=== PATIENT | female | born 1940 | race Caucasian/White ===

== ENCOUNTER 2017-04-17 12:53 | Inpatient (IN) ==
--- NOTE | 2017-04-17 13:01 | Emergency Department Note ---
Disposition Clinical Impression: Closed sacral fracture Qualifiers: Encounter type: initial encounter Zone of sacrum fracture: unspecified portion of sacrum Qualified Code(s): S32.10XA - Unspecified fracture of sacrum, initial encounter for closed fracture Disposition: Admitted As Inpatient Condition: Fair Referrals: Edna Whelan CNP [Primary Care Provider] - Forms: ED Satisfaction Letter Back Pain HPI - General Chief Complaint: ED Back Pain/Injury Stated Complaint: fall/lower back pain Time Seen by Provider: 04/17/17 12:58 Source: patient, family, EMS Mode of arrival: EMS Limitations: physical limitation (Hard of hearing) Nursing Notes Reviewed: Yes Vital Signs Reviewed: Yes - History of Present Illness HPI Narrative: Patient was walking out the front door shortly before presentation. Family states she reached for the doorknob and it spun on her and she lost her balance and fell backwards into a sitting position. She indicated that she felt a pop and pain in her mid low back and they called the squad to have her brought in for evaluation. She poorly has had a number fractures in the past and they are worried that she might of broken something. She is able to indicate that her pain is only in the mid low back. She denies hitting her head or having pain in the neck or upper back. She has not had preceding physical complaint. She is not having chest pain, palpitations, cough or congestion. She has abdominal pain, nausea, vomiting or diarrhea. She has had a recent UTI which she was started on Cipro and then switched to Augmentin. She has not been having fevers , chills or other weakness or dizziness. Pt Subjective Complaint: back pain Onset (ago): Just RELIABILITY SPECIALIST Duration: constant Similar Symptoms Previously: No Location: lumbar spine Pain Severity: moderate Quality: dull, aching Radiation: none Improves with: immobilization Worsens with: movement Context: fall Associated symptoms: Denies: numbness, weakness, incontinence of bowel/bladder, fever, chills, abdominal pain, dysuria, hematuria - Related Data Home Medications Medication Instructions Recorded Confirmed Albuterol Sulfate [Ventolin Hfa] 18 gm IH Q4HR PRN 12/06/16 01/14/17 Amiodarone [Cordarone] 200 mg PO DAILY 12/06/16 01/14/17 Aspirin [Lo-Dose Aspirin EC] 81 mg PO QAM 12/06/16 01/14/17 Beclomethasone Diprop 80mcg [Qvar 4 puff IH BID 12/06/16 01/14/17 80 mcg] Gabapentin [Neurontin] 400 mg PO QAM 12/06/16 01/14/17 GlipiZIDE [Glucotrol Xl] 2.5 mg PO BID 12/06/16 01/14/17 Hydralazine HCl 100 mg PO TID 12/06/16 01/14/17 Levothyroxine [Synthroid] 88 mcg PO 0612/06/16 01/14/17 Lisinopril 40 mg PO BID 12/06/16 01/14/17 Methenamine Hippurate [Hiprex] 1 gm PO BID 12/06/16 01/14/17 Jacob-3/Dha/Epa/Fish Oil [Jacob 3 1 each PO QAM 12/06/16 01/14/17 500 Softgel] Simvastatin [Zocor] 10 mg PO QAM 12/06/16 01/14/17 amLODIPine [Norvasc] 10 mg PO QAM 12/06/16 01/14/17 metFORMIN [Glucophage] 500 mg PO BIDWM 12/06/16 01/14/17 Sertraline [Zoloft] 25 mg PO DAILY 01/14/17 01/14/17 Previous Rx's Medication Instructions Recorded Albuterol Sulfate [Albuterol 2 puff IH Q4HR PRN #1 hfa.aer.ad 12/14/16 Inhaler] Meloxicam 7.5 mg PO DAILY #7 tablet 01/14/17 Ciprofloxacin [Cipro] 500 mg PO BID #10 tablet 04/03/17 Allergies Allergy/AdvReac Type Severity Reaction Status Date / Time No Known Allergies Allergy Verified 12/06/16 17:11 All systems ED: reviewed and negative except as stated. Past Medical History - Past Medical History Attestation: Yes The following information was validated with the patient. Source: patient, old records reviewed, obtained from family, nursing notes reviewed Medical history: Reports: arthritis, atrial fibrillation, diabetes, hypertension , thyroid disease Surgical history: Reports: hysterectomy, orthopedic, other (Left ankle, elbow repair, bilateral wrist surgeries), other (Tonsillectomy) Psychiatric history: Reports: anxiety - Social History Smoking Status: Never smoker Smokeless Tobacco Status: No Alcohol use: Reports: none Drug use: Reports: none Physical Exam - General Limitations: physical limitation (Hard of hearing) General appearance: alert, in no apparent distress - Head Head exam: atraumatic, normocephalic, normal inspection, other (No point tenderness to palpation.) - Eye Eye exam: Present: normal appearance, PERRL, EOMI - ENT ENT exam: normal exam, normal oropharynx, mucous membranes moist - Neck Neck exam: Present: normal inspection, full ROM, trachea midline - Chest Chest inspection: Present: normal inspection, symmetric chest wall rise - Respiratory Respiratory exam: Present: normal lung sounds bilaterally. Absent: respiratory distress, wheezes, prolonged expiratory phase - Cardiovascular Cardiovascular exam: Present: regular rate, normal rhythm, normal heart sounds. Absent: tachycardia - Abdominal Exam Abdominal exam: Present: soft, Non-Tender, normal bowel sounds. Absent: tenderness, distention, guarding, rebound, rigidity - Extremities Exam Extremities exam: Present: normal inspection, full ROM, normal capillary refill. Absent: tenderness, pedal edema, calf tenderness - Expanded Lower Extremity Exam Neurovascular/Tendon exam: Present: normal capillary refill. Absent: motor deficit, sensory deficit, tendon deficit Gait: not tested/not observed - Back Exam Back exam: Present: normal inspection, tenderness (Mid-level lumbar spine.), vertebral tenderness. Absent: full ROM, CVA tenderness (R), CVA tenderness (L) , muscle spasm, paraspinal tenderness, straight leg raise (R), straight leg raise (L) - Neurological Exam Neurological exam: Present: alert, oriented X3. Absent: motor sensory deficit - Psychiatric Psychiatric exam: Present: normal affect, normal mood - Skin Skin exam: Present: warm, dry, intact, normal color Course Course Narrative: 1400: There has been discussed with the patient, family and Dr. Cyr. Dr. Cyr is agreeable with a patient at this facility to coordinate further PT and OT evaluation. He would like a consultation with orthopedics to ensure that they would not do anything more aggressive or specific upper at [facility] main [place]. I have paged to Dr. Blackburn to discuss the care of this patient. 1415: Care of the subtle, nondisplaced bilateral sacral fractures is discussed with Dr. Blackburn architectural sales consultant for orthopedics. He confirms that there is nothing specific to do, that she should use a walker and weightbearing as tolerated, should receive pain management and a bowel regimen to prevent constipation. He will be available for phone consultation with regard to her course is needed. He does not believe she needs transferred at this time. Vital Signs Temperature 98.2 F 04/17/17 12:55 Pulse Rate 46 04/17/17 12:55 Respiratory Rate 18 04/17/17 12:55 Blood Pressure 155/101 04/17/17 12:55 O2 Sat by Pulse Oximetry 92 04/17/17 12:55 Temperature 98.2 F 04/17/17 12:59 Pulse Rate 61 04/17/17 14:35 Respiratory Rate 18 04/17/17 14:35 Blood Pressure 148/75 04/17/17 14:35 O2 Sat by Pulse Oximetry 95 04/17/17 14:35 Oxygen Delivery Oxygen Delivery Nasal Cannula Back Pain/Injury - Differential Diagnosis Differential Diagnosis: Likely: lumbar radiculopathy, sciatica, strain of lumbar region (Impression fracture) - Lab Data Lab results reviewed: Yes I reviewed the patient's lab results. Result diagrams: 04/17/17 14:10 04/17/17 14:10 Lab Results 04/17/17 04/17/17 Range/Units 14:10 14:10 WBC 10.2 (4.3-11.1) K/mcL RBC 4.33 (3.82-4.97) M/mcL Hgb 11.5 (11.5-15.4) g/dL Hct 37.2 (35.3-44.9) % MCV 85.9 (83.0-100.0) fL MCH 26.6 L (28.0-33.3) pg MCHC 30.9 L (31.6-35.5) g/dL RDW 17.1 H (11.5-14.5) % Plt Count 232 (140-400) K/mcL MPV 10.8 (9.4-12.4) fL Immature Gran % 0.7 (0-4) % Seg Neutrophils % 79.6 % Lymphocytes % 11.9 % Monocytes % 5.8 % Eosinophils % 1.6 % Basophils % 0.4 % Neutrophils # 8.1 (1.6-8.9) K/mcL Lymphocytes # 1.2 (0.6-4.6) K/mcL Monocytes # 0.6 (0.0-1.3) K/mcL Eosinophils # 0.2 (0.0-0.6) K/mcL Basophils # 0.0 (0.0-0.2) K/mcL Sodium 140 (136-145) mEq/L Potassium 4.4 (3.5-4.5) mEq/L Chloride 108 (98-109) mEq/L Carbon Dioxide 22 (19-29) mEq/L BUN 14 (7-20) mg/dL Creatinine 0.82 (0.57-1.11) mg/dL Est GFR ( Amer) > 60 (> 60) Est GFR (Non-Af Amer) > 60 (> 60) BUN/Creatinine Ratio 17 (6-26) Glucose 95 (70-99) mg/dL Calculated Osmolality 290 (280-300) Calcium 8.6 (8.6-10.8) mg/dL - Radiology Data Radiology results reviewed: Yes I reviewed the patient's radiology results. CT is performed of the abdomen and pelvis without IV or oral contrast. This does not demonstrate acute abnormality in the lungs nor intra-abdominal structures. There is a retroperitoneal swelling or hemorrhage. The aorta appears normal. Lumbar spine is without evidence for compression and disc spaces are intact. She does have degenerative changes. Pelvis, pubic rami and hips appear normal. There appears to be some vacuolization of the sacroiliac joints but do not see evidence for acute fracture. No acute abnormality is seen , on my interpretation. Impressions Abdomen/Pelvis CT 04/17/17 13:01 IMPRESSION: Bilateral sacral fractures, presumably recent or acute. Intra-abdominal postsurgical findings D/ / Felix Arnett MD / Felix Arnett MD Interpreting Provider: Felix Arnett MD
[2017-04-17] MEDS ORDERED: 0.9 % Sodium Chloride 1,000 ML IVC SCH (14:00)
[2017-04-17] MEDS ORDERED: Ketorolac 30 MG/ML VIAL IVP ONE (14:01)
[2017-04-17] MEDS ORDERED: Ondansetron 4 MG/2 ML VIAL IVP ONE (14:01)
[2017-04-17] MEDS ORDERED: *HR* HYDROmorphone (PF) 1 MG/ML SYRINGE IVP ONE (14:01)
[2017-04-17 14:18] LABS: Basophils % 0.4 %; Eosinophils # 0.2 K/mcL (0.0-0.6); Eosinophils % 1.6 %; Hematocrit 37.2 % (35.3-44.9); Hemoglobin 11.5 g/dL (11.5-15.4); Immature Granulocytes % 0.7 % (0-4); Lymphocytes # 1.2 K/mcL (0.6-4.6); Lymphocytes % 11.9 %; Mean Corpuscular HGB Conc 30.9 g/dL (31.6-35.5); Mean Corpuscular Hemoglobin 26.6 pg (28.0-33.3); Mean Corpuscular Volume 85.9 fL (83.0-100.0); Mean Platelet Volume 10.8 fL (9.4-12.4); Monocytes # 0.6 K/mcL (0.0-1.3); Monocytes % 5.8 %; Neutrophils # 8.1 K/mcL (1.6-8.9); Platelet Count 232 K/mcL (140-400); Red Blood Count 4.33 M/mcL (3.82-4.97); Red Cell Distribution Width 17.1 % (11.5-14.5); Segmented Neutrophils % 79.6 %
[2017-04-17 14:33] LABS: BUN/Creatinine Ratio 17 (6-26); Blood Urea Nitrogen 14 mg/dL (7-20); Calcium 8.6 mg/dL (8.6-10.8); Carbon Dioxide 22 mEq/L (19-29); Chloride 108 mEq/L (98-109); Glucose 95 mg/dL (70-99); Osmolality,Calculated 290 (280-300); Potassium 4.4 mEq/L (3.5-4.5); Sodium 140 mEq/L (136-145); eGFR For African Americans > 60 (> 60); eGFR For Non-African Americans > 60 (> 60)
[2017-04-17] MEDS ORDERED: *HR* Dextrose 50 % in Water (Syg) 50 ML SYRINGE IVP PRN (15:02)
[2017-04-17] MEDS ORDERED: D5% in Water 1,000 ML IVC PRN (15:02)
[2017-04-17] MEDS ORDERED: Naloxone 0.4 MG/ML INJ IVP PRN (15:02)
[2017-04-17] MEDS ORDERED: *HR* HYDROcodone/Acet 5/325 mg TABLET PO PRN (15:02)
[2017-04-17] MEDS ORDERED: Dextrose Gel 15 GM PO PRN ×2 (15:02)
[2017-04-17] MEDS ORDERED: Ondansetron 4 MG/2 ML VIAL IVP PRN (15:02)
[2017-04-17] MEDS ORDERED: MOM Conc 10 ML UD.LIQ PO PRN (15:02)
[2017-04-17] MEDS: 0.9 % Sodium Chloride 1,000 ML IVC SCH (16:40)
[2017-04-17] MEDS: Insulin LISPRO 300 UNITS/3 ML VIAL SQ SCH (16:41)
--- NOTE | 2017-04-17 20:29 | Internal Med History&Physical ---
Date of Encounter: 04/17/17 Time of Encounter: 20:25 Assessment and Plan (1) Closed sacral fracture Current visit: Yes Status: Acute Consult PT and social service weightbearing as tolerated with a walker and pain medicine. Qualifiers: Encounter type: initial encounter Zone of sacrum fracture: unspecified portion of sacrum Qualified Code(s): S32.10XA - Unspecified fracture of sacrum , initial encounter for closed fracture (2) Symptomatic bradycardia Current visit: Yes Status: Acute Discussed with the patient about the workup for a pacemaker before she connected with falling and she was not interested. (3) Intractable pain Current visit: Yes Status: Acute We will change the hydrocodone to oxycodone if it works any better for her (4) DM type 2 (diabetes mellitus, type 2) Current visit: Yes Status: Chronic HEMOGLOBIN A1c to see house doing continue the glipizide Qualifiers: Diabetes mellitus complication status: with neurologic complications Diabetes mellitus complication detail: with unspecified neuropathy Diabetes mellitus truck terminal manager insulin use: without truck terminal manager use Qualified Code(s): E11.40 - Type 2 diabetes mellitus with diabetic neuropathy, unspecified (5) Hypertension Current visit: Yes Status: Chronic Continue monitoring will hold amlodipine until we see her blood pressure and pulse with monitoring continue lisinopril Qualifiers: Hypertension type: essential hypertension Qualified Code(s): I10 - Essential (primary) hypertension (6) SHON (generalized anxiety disorder) Current visit: Yes Status: Acute (7) Peripheral neuropathy Current visit: Yes Status: Chronic We will hold the gabapentin because it could have played a part and weakness and falls Qualifiers: Peripheral neuropathy type: polyneuropathy, unspecified Qualified Code(s): G62.9 - Polyneuropathy, unspecified (8) Atrial fibrillation Current visit: Yes Status: Chronic Wall. The Cordarone that she was on consider a cardiology consult Qualifiers: Atrial fibrillation type: persistent Qualified Code(s): I48.1 - Persistent atrial fibrillation Internal Medicine - H&P: HPI Admitted From: Home Plans for Post Hospital Care: Transfer Inp Rehab Fac (But she may have a pacemaker placed) History of present illness: Ms. Murray is a 76 year old female presents to emergency room after falling. She apparently reached for doorknob and lost her balance and fell backwards onto her bottom. Permission was obtained from the patient is eroded down and from her daughter Miri Matos. She apparently has had multiple falls in the past and she has had bradycardia. Daily she has refused outpatient workup for her heart in the past. He did not think about her falls may be related to her low heart rate. She is wanting to talk to her family and decide whether or not a pacemaker would be an option at this point. She denied any chest pain or shortness of breath or other concerns except her pain is about a 10 out of 10 and only goes down to about 9 out of 10 with medicine. 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 The telemetry did not show any obvious P waves so I got a EKG that also did not show P waves. Telemetry and was in the low 40s. Her daughter reports that it gets down into the 30s sometimes a home. Pain not controlled change hydrocodone to oxycodone. Ask surgery to her and her daughter 's questions address their concerns Past Med Surg Social Fam HX - Past Medical History Medical history: arthritis, atrial fibrillation, CVA (Right eye blindness), diabetes, hyperlipidemia, hypertension, osteoporosis, thyroid disease, other ( Symptomatic bradycardia,) Psychiatric history: anxiety - Past Surgical History Surgical History: hysterectomy, orthopedic, other, other - Social History Smoking Status: Never smoker Smokeless Tobacco Status: No Alcohol use: none Drug use: none - Family History Father Living Status: Hx Family Cardiac Disorders: Yes Mother Living Status: (Suicide) Internal Medicine - H&P: Meds Amiodarone [Cordarone] 200 mg PO DAILY 12/06/16 [History] Gabapentin [Neurontin] 400 mg PO QAM 12/06/16 [History] GlipiZIDE [Glucotrol Xl] 2.5 mg PO BID 12/06/16 [History] Levothyroxine [Synthroid] 88 mcg PO 0630 12/06/16 [History] Lisinopril 40 mg PO BID 12/06/16 [History] Methenamine Hippurate [Hiprex] 1 gm PO BID 12/06/16 [History] amLODIPine [Norvasc] 10 mg PO QAM 12/06/16 [History] Sertraline [Zoloft] 50 mg PO DAILY 01/14/17 [History] Ferrous Sulfate [Iron] 325 mg PO DAILY 04/17/17 [History] Furosemide [Lasix] 40 mg PO DAILY 04/17/17 [History] Iron 65 mg PO BID 04/17/17 [History] Lisinopril [Zestril] 40 mg PO BID 04/17/17 [History] Lovastatin [Mevacor] 20 mg PO DAILY 04/17/17 [History] Paroxetine [Paxil] 20 mg PO DAILY 04/17/17 [History] Potassium Chloride [K-Tab ER] 20 meq PO DAILY 04/17/17 [History] Tramadol HCl [Ultram] 50 mg PO Q8H PRN 04/17/17 [History] Venlafaxine [Effexor] 75 mg PO TID 04/17/17 [History] 3 Allergy/AdvReac Type Severity Reaction Status Date / Time No Known Allergies Allergy Verified 12/06/16 17:11 All Systems PM: A 10-system review of systems was performed and is negative for pertinent findings except as documented above in the HPI. - Constitutional Vitals: Temp Pulse Resp BP Pulse Ox 98.5 F 45 20 158/63 90 04/17/17 18:33 04/17/17 18:33 04/17/17 18:33 04/17/17 18:33 04/17/17 18:33 - Head Head exam: Present: atraumatic, normocephalic - Eye Eye exam: Present: conjuntiva pink, sclera anicteric Pupils: Present: PERRL (Right eye not responsive drawn inward) - Neck Neck exam general surgery: Present: supple, trachea midline. Absent: lymphadenopathy - Respiratory Respiratory exam: Present: CTAB. Absent: accessory muscle use, rales, rhonchi, wheezes - Cardiovascular Cardiovascular exam: Present: RRR, +S1, +S2. Absent: diastolic murmur, gallop, rubs, systolic murmur - GI/Abdominal GI/Abdominal exam: Present: normal bowel sounds, soft, no peritoneal signs. Absent: distended, tenderness - Extremities Exam Extremities exam: Present: warm. Absent: calf tenderness, cyanotic, pedal edema - Neurological Exam Neurological exam: Present: alert (But hard of hearing). Absent: facial droop, speech deficit - Skin Skin exam: Present: dry, intact Internal Med - H&P Results - Labs CBC & Chem 7: 04/17/17 14:10 04/17/17 14:10
[2017-04-17] MEDS: Lisinopril 20 MG TABLET PO SCH (21:16)
[2017-04-17] MEDS: *HR* OxyCODONE/APAP 5/325 TABLET PO PRN (22:36)
[2017-04-18] MEDS: 0.9 % Sodium Chloride 1,000 ML IVC SCH (00:50)
[2017-04-18] MEDS: *HR* OxyCODONE/APAP 5/325 TABLET PO PRN ×4 (02:52→20:08)
[2017-04-18] MEDS: Insulin LISPRO 300 UNITS/3 ML VIAL SQ SCH ×4 (08:03→20:09)
[2017-04-18] MEDS: Furosemide 40 MG TABLET PO SCH (10:02)
[2017-04-18] MEDS: Lisinopril 20 MG TABLET PO SCH (10:03)
--- NOTE | 2017-04-18 13:22 | Internal Med Progress Note ---
Date of Encounter: 04/18/17 Time of Encounter: 12:55 - Assessment and plan (1) Closed sacral fracture Current Visit: Yes Status: Acute Assessment and plan: April 18. PT and OT evaluation/intervention will be ordered. Duragesic patch will be given for continuous pain relief and oxycodone will be continued when necessary. Qualifiers: Encounter type: initial encounter Zone of sacrum fracture: unspecified portion of sacrum Qualified Code(s): S32.10XA - Unspecified fracture of sacrum , initial encounter for closed fracture (2) Falls Current Visit: Yes Status: Acute Assessment and plan: April 18. Will order head CT. She will have PT and OT evaluations. Qualifiers: Encounter type: initial encounter Qualified Code(s): W19.XXXA - Unspecified fall, initial encounter (3) Bradycardia Current Visit: Yes Status: Acute Assessment and plan: April 18. A 12-lead EKG shows regular rhythm 46/m which appears to be junctional rhythm with right bundle branch block. Continue to monitor. (4) Hypothyroidism Current Visit: Yes Status: Acute Assessment and plan: April 18. TSH was normal at 3.032. Continue present dose Synthroid. Qualifiers: Hypothyroidism type: unspecified Qualified Code(s): E03.9 - Hypothyroidism , unspecified (5) DM type 2 (diabetes mellitus, type 2) Current Visit: Yes Status: Chronic Assessment and plan: April 18. Hemoglobin A1c is pending. Accu-Chek show fluctuating blood sugars. Qualifiers: Diabetes mellitus complication status: with neurologic complications Diabetes mellitus complication detail: with unspecified neuropathy Diabetes mellitus mcc insulin use: without mcc use Qualified Code(s): E11.40 - Type 2 diabetes mellitus with diabetic neuropathy, unspecified (6) Hypertension Current Visit: Yes Status: Chronic Assessment and plan: April 18. Continue lisinopril and amlodipine. Qualifiers: Hypertension type: essential hypertension Qualified Code(s): I10 - Essential (primary) hypertension (7) Atrial fibrillation Current Visit: Yes Status: Chronic Assessment and plan: April 18. Will order amiodarone level. Qualifiers: Atrial fibrillation type: paroxysmal Qualified Code(s): I48.0 - Paroxysmal atrial fibrillation - Subjective Interval history: April 18. She has no new complaints. I reviewed her history in detail. She has been falling for 2-3 years at frequency now of approximately once per week. There is no syncopal or nursing episodes associated. She does complain of "dizziness" which she reports as occasionally sensation of vertigo and occasionally simply lightheadedness. She complains of right elbow pain and states she has had previous fracture of the elbow. Her cardiovascular history is significant only for hypertension and atrial fibrillation requiring cardioversion approximately 2 years ago. She has maintained NSR since then. She has been told she has a "slow heart rate" but does not know further details. She reports a 30 pound unintentional weight loss in the past month however on further searching it appears her weight has decreased less than 5 pounds from her usual adult weight. - Constitutional Vitals: Temp Pulse Resp BP Pulse Ox 98.3 F 41 20 154/61 95 04/18/17 11:49 04/18/17 11:49 04/18/17 11:49 04/18/17 11:49 04/18/17 11:49 Exam: Gen.: She is a well-developed well-nourished female lying in bed who appears in no acute distress HEENT: Head is atraumatic and normocephalic. Eyes: EOMI. There is no scleral icterus. She appears to have slight disconjugate gaze with medial deviation of the right eye. EOMI. Mouth: Mucosa is moist Heart: Regular bradycardic rate approximately 40/m Lungs: Clear anteriorly Abdomen: Soft and nontender. No masses or guarding noted. Extremities: She has SARAH hose on which I did not remove. There is no pitting edema. Neurologic: Mental status: She is talkative and a good historian. Cranial nerves: Smile is symmetric. Forehead wrinkles bilaterally. Tempted to midline. EOMI. There is disconjugate gaze as per above. Motor: There is no pronator drift. Cerebellar: Finger to nose is intact bilaterally. Skin: Warm and dry Internal Medicine: Result - Labs CBC & Chem 7: 04/17/17 14:10 04/17/17 14:10 Consult Discharge Plan - Plan Referrals: Edna Whelan CNP [Primary Care Provider] - 1 week
[2017-04-18] MEDS: amLODIPine 5 MG TABLET PO SCH (13:29)
[2017-04-18] MEDS ORDERED: *HR* FentaNYL PATCH 12 MCG PATCH TD SCH (14:00)
[2017-04-18 14:34] LABS: Bilirubin,Urine Negative (Negative); Blood,Urine Negative (Negative); Clarity,Urine Clear (Clear); Color,Urine Yellow (Yellow); Glucose,Urine (UA) 100 mg/dL (Normal); Ketones,Urine Negative (Negative); Leukocyte Esterase,Urine Negative (Negative); Nitrite,Urine Negative (Negative); Protein,Urine Negative (Neg-Trace); Urobilinogen,Urine Normal (Normal)
[2017-04-18 17:21] LABS: Hemoglobin A1C 7.8 %
[2017-04-18] MEDS: Baclofen 10 MG TABLET PO PRN (17:34)
[2017-04-19] MEDS: Baclofen 10 MG TABLET PO PRN (03:08)
[2017-04-19 05:13] LABS: Basophils % 0.4 %; Eosinophils # 0.1 K/mcL (0.0-0.6); Eosinophils % 1.1 %; Hemoglobin 11.6 g/dL (11.5-15.4); Immature Granulocytes % 0.6 % (0-4); Lymphocytes # 0.8 K/mcL (0.6-4.6); Lymphocytes % 9.5 %; Mean Corpuscular HGB Conc 31.4 g/dL (31.6-35.5); Mean Corpuscular Hemoglobin 26.5 pg (28.0-33.3); Mean Corpuscular Volume 84.5 fL (83.0-100.0); Mean Platelet Volume 11.1 fL (9.4-12.4); Monocytes # 0.6 K/mcL (0.0-1.3); Neutrophils # 6.8 K/mcL (1.6-8.9); Platelet Count 181 K/mcL (140-400); Red Blood Count 4.38 M/mcL (3.82-4.97); Red Cell Distribution Width 16.4 % (11.5-14.5); Segmented Neutrophils % 81.4 %
[2017-04-19 05:40] LABS: Alanine Aminotransferase 18 Units/L (0-55); Albumin 3.1 g/dL (3.5-5.0); Albumin/Globulin Ratio 0.9 (1.1-2.2); Alkaline Phosphatase 108 Units/L (38-126); Aspartate Amino Transferase 25 Units/L (5-34); BUN/Creatinine Ratio 13 (6-26); Bilirubin,Total 0.5 mg/dL (0.2-1.2); Blood Urea Nitrogen 9 mg/dL (7-20); Calcium 8.6 mg/dL (8.6-10.8); Carbon Dioxide 22 mEq/L (19-29); Chloride 103 mEq/L (98-109); Globulin 3.5 g/dL (2.4-3.5); Glucose 173 mg/dL (70-99); Osmolality,Calculated 285 (280-300); Potassium 3.6 mEq/L (3.5-4.5); Sodium 136 mEq/L (136-145); Total Protein 6.6 g/dL (6.0-8.3); eGFR For African Americans > 60 (> 60); eGFR For Non-African Americans > 60 (> 60)
[2017-04-19] MEDS: *HR* Enoxaparin 40 MG/0.4 ML SYRINGE SQ SCH (06:42)
[2017-04-19] MEDS: Insulin LISPRO 300 UNITS/3 ML VIAL SQ SCH ×4 (07:54→21:07)
[2017-04-19] MEDS: amLODIPine 5 MG TABLET PO SCH (07:54)
[2017-04-19] MEDS: Lisinopril 20 MG TABLET PO SCH (07:55)
[2017-04-19] MEDS: Furosemide 40 MG TABLET PO SCH (07:55)
[2017-04-19] MEDS: *HR* OxyCODONE/APAP 5/325 TABLET PO PRN ×3 (10:29→21:45)
--- NOTE | 2017-04-19 11:00 | Internal Med Progress Note ---
Date of Encounter: 04/19/17 Time of Encounter: 10:50 - Assessment and plan (1) Closed sacral fracture Current Visit: Yes Status: Acute Assessment and plan: April 18. PT and OT evaluation/intervention will be ordered. Duragesic patch will be given for continuous pain relief and oxycodone will be continued when necessary. Qualifiers: Encounter type: initial encounter Zone of sacrum fracture: unspecified portion of sacrum Qualified Code(s): S32.10XA - Unspecified fracture of sacrum , initial encounter for closed fracture (2) Falls Current Visit: Yes Status: Acute Assessment and plan: April 18. Will order head CT. She will have PT and OT evaluations. April 19. PT and OT evaluations will be done tomorrow. 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 Will start aspirin 81 mg daily Qualifiers: Encounter type: initial encounter Qualified Code(s): W19.XXXA - Unspecified fall, initial encounter (3) Bradycardia Current Visit: Yes Status: Acute Assessment and plan: April 18. A 12-lead EKG shows regular rhythm 46/m which appears to be junctional rhythm with right bundle branch block. Continue to monitor. April 19. Amiodarone has been held and she has returned to normal sinus rhythm 68/m. I will add low-dose metoprolol since her blood pressures are not well controlled. Will remain off amiodarone for now. (4) Hypothyroidism Current Visit: Yes Status: Acute Assessment and plan: April 18. TSH was normal at 3.032. Continue present dose Synthroid. Qualifiers: Hypothyroidism type: unspecified Qualified Code(s): E03.9 - Hypothyroidism , unspecified (5) DM type 2 (diabetes mellitus, type 2) Current Visit: Yes Status: Chronic Assessment and plan: April 18. Hemoglobin A1c is pending. Accu-Chek show fluctuating blood sugars. April 19. Hemoglobin A1c returned slightly above desirable range at 7.8%. We will start metformin. Qualifiers: Diabetes mellitus complication status: with neurologic complications Diabetes mellitus complication detail: with unspecified neuropathy Diabetes mellitus group home insulin use: without group home use Qualified Code(s): E11.40 - Type 2 diabetes mellitus with diabetic neuropathy, unspecified (6) Hypertension Current Visit: Yes Status: Chronic Assessment and plan: April 18. Continue lisinopril and amlodipine. April 19. Continue lisinopril and amlodipine. Will add low-dose metoprolol since she is now in normal sinus rhythm but blood pressures are inadequately controlled. Qualifiers: Hypertension type: essential hypertension Qualified Code(s): I10 - Essential (primary) hypertension (7) Atrial fibrillation Current Visit: Yes Status: Chronic Assessment and plan: April 18. Will order amiodarone level. April 19. Remain off amiodarone and use metoprolol to maintain NSR. Qualifiers: Atrial fibrillation type: paroxysmal Qualified Code(s): I48.0 - Paroxysmal atrial fibrillation - Subjective Interval history: April 18. She has no new complaints. I reviewed her history in detail. She has been falling for 2-3 years at frequency now of approximately once per week. There is no syncopal or nursing episodes associated. She does complain of "dizziness" which she reports as occasionally sensation of vertigo and occasionally simply lightheadedness. She complains of right elbow pain and states she has had previous fracture of the elbow. Her cardiovascular history is significant only for hypertension and atrial fibrillation requiring cardioversion approximately 2 years ago. She has maintained NSR since then. She has been told she has a "slow heart rate" but does not know further details. She reports a 30 pound unintentional weight loss in the past month however on further searching it appears her weight has decreased less than 5 pounds from her usual adult weight. April 19. She has no new complaints. She reports pain is still significant in the sacral area and she seems to get some improvement with muscle relaxers. - Constitutional Vitals: Temp Pulse Resp BP Pulse Ox 98.6 F 73 18 189/81 95 04/19/17 06:35 04/19/17 06:35 04/19/17 06:35 04/19/17 06:35 04/19/17 06:35 Exam: She is resting comfortably in bed and appears in no acute distress. Her abdomen is slightly distended and tympanitic to percussion. Bowel sounds are diminished. There is no tenderness. She denies nausea or vomiting. I reviewed her medications, lab results, and CT report. Internal Medicine: Result - Labs CBC & Chem 7: 04/19/17 04:47 04/19/17 04:47 Labs: Short CBC 04/19/17 Range/Units 04:47 WBC 8.3 (4.3-11.1) K/mcL Hgb 11.6 (11.5-15.4) g/dL Hct 37.0 (35.3-44.9) % Plt Count 181 (140-400) K/mcL Neutrophils # 6.8 (1.6-8.9) K/mcL BMP 04/19/17 04:47 Sodium 136 Potassium 3.6 Chloride 103 Carbon Dioxide 22 BUN 9 Creatinine 0.69 Glucose 173 H Calcium 8.6 Liver Function 04/19/17 Range/Units 04:47 Total Bilirubin 0.5 (0.2-1.2) mg/dL AST 25 (5-34) Units/L ALT 18 (0-55) Units/L Alkaline Phosphatase 108 (38-126) Units/L Albumin 3.1 L (3.5-5.0) g/dL Urine 04/18/17 Range/Units 14:00 Urine Color Yellow (Yellow) Urine Clarity Clear (Clear) Urine pH 5.0 (5.0-8.0) pH Units Ur Specific [place] 1.020 (1.010-1.025) Urine Protein Negative (Neg-Trace) mg/dL Urine Glucose (UA) 100 H (Normal) mg/dL - VTE Documentation of Mechanical Device: Graduated compression elastic hosiery Consult Discharge Plan - Plan Referrals: Edna Whelan CNP [Primary Care Provider] - 1 week
[2017-04-19] MEDS: 0.9 % Sodium Chloride 1,000 ML IVC SCH (16:02)
[2017-04-19] MEDS: *HR* Metformin 500 MG TABLET PO SCH (17:41)
[2017-04-20] MEDS: *HR* OxyCODONE/APAP 5/325 TABLET PO PRN ×3 (06:08→21:09)
[2017-04-20] MEDS: *HR* Enoxaparin 40 MG/0.4 ML SYRINGE SQ SCH (06:09)
--- NOTE | 2017-04-20 08:16 | Electrocardiograph Report ---
[place] [id number] Test Date: 2017-04-17 Pat Name: Valerie Murray Department: [id number] Room: [facility] Gender: F Family Development Extension Specialist: Mat : [id number] Requested By: Cordell Cyr Order Number: [id number] Reading MD: Ermelinda Solitario Measurements Intervals Kinde Rate: 46 P: SC: 0 QRS: 75 QRSD: 143 T: 166 QT: 513 QTc: 473 Interpretive Statements Junctional escape rhythm RIGHT BUNDLE BRANCH BLOCK Electronically Signed On 04-19-2017 11:22:15 EDT by Ermelinda Solitario
[2017-04-20] MEDS: Lisinopril 20 MG TABLET PO SCH (08:25)
[2017-04-20] MEDS: amLODIPine 5 MG TABLET PO SCH (08:28)
[2017-04-20] MEDS: *HR* Metformin 500 MG TABLET PO SCH ×2 (08:28→20:59)
[2017-04-20] MEDS: Furosemide 40 MG TABLET PO SCH (08:28)
[2017-04-20] MEDS: Insulin LISPRO 300 UNITS/3 ML VIAL SQ SCH ×4 (08:30→21:04)
[2017-04-20] MEDS: Baclofen 10 MG TABLET PO PRN ×2 (08:30→21:09)
[2017-04-20] MEDS: Aspirin 81 MG TAB.CHEW PO SCH (10:40)
--- NOTE | 2017-04-20 10:48 | Internal Med Progress Note ---
Date of Encounter: 04/20/17 Time of Encounter: 10:20 - Assessment and plan (1) Closed sacral fracture Current Visit: Yes Status: Acute Assessment and plan: April 18. PT and OT evaluation/intervention will be ordered. Duragesic patch will be given for continuous pain relief and oxycodone will be continued when necessary. April 20. Continue present management Qualifiers: Encounter type: initial encounter Zone of sacrum fracture: unspecified portion of sacrum Qualified Code(s): S32.10XA - Unspecified fracture of sacrum , initial encounter for closed fracture (2) Falls Current Visit: Yes Status: Acute Assessment and plan: April 18. Will order head CT. She will have PT and OT evaluations. April 19. PT and OT evaluations will be done tomorrow. 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 Will start aspirin 81 mg daily April 20. Continue therapy intervention and aspirin. Qualifiers: Encounter type: initial encounter Qualified Code(s): W19.XXXA - Unspecified fall, initial encounter (3) Bradycardia Current Visit: Yes Status: Acute Assessment and plan: April 18. A 12-lead EKG shows regular rhythm 46/m which appears to be junctional rhythm with right bundle branch block. Continue to monitor. April 19. Amiodarone has been held and she has returned to normal sinus rhythm 68/m. I will add low-dose metoprolol since her blood pressures are not well controlled. Will remain off amiodarone for now. April 20. Continue present management (4) Hypothyroidism Current Visit: Yes Status: Acute Assessment and plan: April 18. TSH was normal at 3.032. Continue present dose Synthroid. Qualifiers: Hypothyroidism type: unspecified Qualified Code(s): E03.9 - Hypothyroidism , unspecified (5) DM type 2 (diabetes mellitus, type 2) Current Visit: Yes Status: Chronic Assessment and plan: April 18. Hemoglobin A1c is pending. Accu-Chek show fluctuating blood sugars. April 19. Hemoglobin A1c returned slightly above desirable range at 7.8%. We will start metformin. April 20. Continue metformin and Accu-Cheks with SSI. Qualifiers: Diabetes mellitus complication status: with neurologic complications Diabetes mellitus complication detail: with unspecified neuropathy Diabetes mellitus halfway insulin use: without buttermaker continuous churn use Qualified Code(s): E11.40 - Type 2 diabetes mellitus with diabetic neuropathy, unspecified (6) Hypertension Current Visit: Yes Status: Chronic Assessment and plan: April 18. Continue lisinopril and amlodipine. April 19. Continue lisinopril and amlodipine. Will add low-dose metoprolol since she is now in normal sinus rhythm but blood pressures are inadequately controlled. April 20. Continue lisinopril, amlodipine, and metoprolol. Qualifiers: Hypertension type: essential hypertension Qualified Code(s): I10 - Essential (primary) hypertension (7) Atrial fibrillation Current Visit: Yes Status: Chronic Assessment and plan: April 18. Will order amiodarone level. April 19. Remain off amiodarone and use metoprolol to maintain NSR. April 20. Continue present management Qualifiers: Atrial fibrillation type: paroxysmal Qualified Code(s): I48.0 - Paroxysmal atrial fibrillation - Subjective Interval history: April 18. She has no new complaints. I reviewed her history in detail. She has been falling for 2-3 years at frequency now of approximately once per week. There is no syncopal or nursing episodes associated. She does complain of "dizziness" which she reports as occasionally sensation of vertigo and occasionally simply lightheadedness. She complains of right elbow pain and states she has had previous fracture of the elbow. Her cardiovascular history is significant only for hypertension and atrial fibrillation requiring cardioversion approximately 2 years ago. She has maintained NSR since then. She has been told she has a "slow heart rate" but does not know further details. She reports a 30 pound unintentional weight loss in the past month however on further searching it appears her weight has decreased less than 5 pounds from her usual adult weight. April 19. She has no new complaints. She reports pain is still significant in the sacral area and she seems to get some improvement with muscle relaxers. April 20. She has no new complaints but is more confused today - Constitutional Vitals: Temp Pulse Resp BP Pulse Ox 98.5 F 67 18 171/83 95 04/20/17 10:18 04/20/17 10:18 04/20/17 10:18 04/20/17 10:18 04/20/17 10:18 Exam: She is resting comfortably in bed and appears in no acute distress. She is pleasant but her conversation is abnormal with nonsensical sentences and reply to questions. She moves her arms and legs without focal motor deficits to gross observation. I reviewed her medications and lab results. Internal Medicine: Result - Labs CBC & Chem 7: 04/19/17 04:47 04/19/17 04:47 - VTE Documentation of Mechanical Device: Graduated compression elastic hosiery Consult Discharge Plan - Plan Referrals: Edna Whelan, EMPLOYMENT LEGAL ASSISTANT [Primary Care Provider] - 1 week
[2017-04-21] MEDS: *HR* Enoxaparin 40 MG/0.4 ML SYRINGE SQ SCH (06:10)
[2017-04-21] MEDS: Insulin LISPRO 300 UNITS/3 ML VIAL SQ SCH ×2 (09:05→12:29)
[2017-04-21] MEDS: Aspirin 81 MG TAB.CHEW PO SCH (09:20)
[2017-04-21] MEDS: Lisinopril 20 MG TABLET PO SCH (09:20)
[2017-04-21] MEDS: Furosemide 40 MG TABLET PO SCH (09:21)
[2017-04-21] MEDS: *HR* Metformin 500 MG TABLET PO SCH (09:21)
[2017-04-21] MEDS: amLODIPine 5 MG TABLET PO SCH (09:22)
[2017-04-21] MEDS ORDERED: Ondansetron ODT 4 MG TAB.RAPDIS SL PRN (09:57)
[2017-04-21] MEDS: *HR* OxyCODONE/APAP 5/325 TABLET PO PRN (10:11)
--- NOTE | 2017-04-21 10:22 | Internal Med Progress Note ---
Date of Encounter: 04/21/17 Time of Encounter: 10:10 - Assessment and plan (1) Closed sacral fracture Current Visit: Yes Status: Acute Assessment and plan: April 18. PT and OT evaluation/intervention will be ordered. Duragesic patch will be given for continuous pain relief and oxycodone will be continued when necessary. April 20. Continue present management April 21. PT and OT evaluations reviewed. Continue present management except fentanyl patch will be discontinued to avoid mental status suppression Qualifiers: Encounter type: initial encounter Zone of sacrum fracture: unspecified portion of sacrum Qualified Code(s): S32.10XA - Unspecified fracture of sacrum , initial encounter for closed fracture (2) Falls Current Visit: Yes Status: Acute Assessment and plan: April 18. Will order head CT. She will have PT and OT evaluations. April 19. PT and OT evaluations will be done tomorrow. 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 Will start aspirin 81 mg daily April 20. Continue therapy intervention and aspirin. April 21. Continue therapy interventions and aspirin. Qualifiers: Encounter type: initial encounter Qualified Code(s): W19.XXXA - Unspecified fall, initial encounter (3) Bradycardia Current Visit: Yes Status: Acute Assessment and plan: April 18. A 12-lead EKG shows regular rhythm 46/m which appears to be junctional rhythm with right bundle branch block. Continue to monitor. April 19. Amiodarone has been held and she has returned to normal sinus rhythm 68/m. I will add low-dose metoprolol since her blood pressures are not well controlled. Will remain off amiodarone for now. April 20. Continue present management April 21. Resolved. Continue present medications and add doxazosin for blood pressure control (4) Hypothyroidism Current Visit: Yes Status: Acute Assessment and plan: April 18. TSH was normal at 3.032. Continue present dose Synthroid. Qualifiers: Hypothyroidism type: unspecified Qualified Code(s): E03.9 - Hypothyroidism , unspecified (5) DM type 2 (diabetes mellitus, type 2) Current Visit: Yes Status: Chronic Assessment and plan: April 18. Hemoglobin A1c is pending. Accu-Chek show fluctuating blood sugars. April 19. Hemoglobin A1c returned slightly above desirable range at 7.8%. We will start metformin. April 20. Continue metformin and Accu-Cheks with SSI. April 21. Blood sugars improved. Continue metformin and Accu-Cheks with SSI. Qualifiers: Diabetes mellitus complication status: with neurologic complications Diabetes mellitus complication detail: with unspecified neuropathy Diabetes mellitus intermediate insulin use: without terminal superintendent use Qualified Code(s): E11.40 - Type 2 diabetes mellitus with diabetic neuropathy, unspecified (6) Hypertension Current Visit: Yes Status: Chronic Assessment and plan: April 18. Continue lisinopril and amlodipine. April 19. Continue lisinopril and amlodipine. Will add low-dose metoprolol since she is now in normal sinus rhythm but blood pressures are inadequately controlled. April 20. Continue lisinopril, amlodipine, and metoprolol. April 21. Will add doxazosin and continue lisinopril, amlodipine, and metoprolol at present doses. Qualifiers: Hypertension type: essential hypertension Qualified Code(s): I10 - Essential (primary) hypertension (7) Atrial fibrillation Current Visit: Yes Status: Chronic Assessment and plan: April 18. Will order amiodarone level. April 19. Remain off amiodarone and use metoprolol to maintain NSR. April 20. Continue present management Qualifiers: Atrial fibrillation type: paroxysmal Qualified Code(s): I48.0 - Paroxysmal atrial fibrillation - Subjective Interval history: April 18. She has no new complaints. I reviewed her history in detail. She has been falling for 2-3 years at frequency now of approximately once per week. There is no syncopal or nursing episodes associated. She does complain of "dizziness" which she reports as occasionally sensation of vertigo and occasionally simply lightheadedness. She complains of right elbow pain and states she has had previous fracture of the elbow. Her cardiovascular history is significant only for hypertension and atrial fibrillation requiring cardioversion approximately 2 years ago. She has maintained NSR since then. She has been told she has a "slow heart rate" but does not know further details. She reports a 30 pound unintentional weight loss in the past month however on further searching it appears her weight has decreased less than 5 pounds from her usual adult weight. April 19. She has no new complaints. She reports pain is still significant in the sacral area and she seems to get some improvement with muscle relaxers. April 20. She has no new complaints but is more confused today April 21. She is lying in bed and does not respond to voice or light touch meaningfully. Staff reports she was talking and moving without gross deficits earlier this morning. - Constitutional Vitals: Temp Pulse Resp BP Pulse Ox 98.7 F 58 17 185/67 93 04/21/17 07:13 04/21/17 07:13 04/21/17 07:13 04/21/17 07:13 04/21/17 07:13 Exam: She is lying in bed and appears comfortable. She tried to bite the straw when the nurse was offering her water in preparation for her morning indications. She did not speak. Heart is regular at rate 68/m. Lungs are clear anteriorly. I reviewed her medications and lab results. Internal Medicine: Result - Labs CBC & Chem 7: 04/19/17 04:47 04/19/17 04:47 - VTE Documentation of Mechanical Device: Graduated compression elastic hosiery Consult Discharge Plan - Plan Referrals: Edna Whelan VIDEO PRODUCER [Primary Care Provider] - 1 week
[2017-04-21 12:12] VITALS: BP 170/74
--- NOTE | 2017-04-21 14:17 | Discharge Summary ---
Date of Encounter: 04/21/17 Time of Encounter: 13:55 - Discharge Diagnosis (1) Closed sacral fracture Priority: Primary Status: Acute Qualifiers: Encounter type: initial encounter Zone of sacrum fracture: unspecified portion of sacrum Qualified Code(s): S32.10XA - Unspecified fracture of sacrum , initial encounter for closed fracture (2) Falls Priority: Secondary Status: Acute Qualifiers: Encounter type: initial encounter Qualified Code(s): W19.XXXA - Unspecified fall, initial encounter (3) Bradycardia Priority: Secondary Status: Resolved (4) Hypothyroidism Priority: Secondary Status: Chronic Qualifiers: Hypothyroidism type: unspecified Qualified Code(s): E03.9 - Hypothyroidism , unspecified (5) DM type 2 (diabetes mellitus, type 2) Priority: Secondary Status: Chronic Qualifiers: Diabetes mellitus complication status: with neurologic complications Diabetes mellitus complication detail: with unspecified neuropathy Diabetes mellitus mcfp insulin use: without mcfp use Qualified Code(s): E11.40 - Type 2 diabetes mellitus with diabetic neuropathy, unspecified (6) Hypertension Priority: Secondary Status: Chronic Qualifiers: Hypertension type: essential hypertension Qualified Code(s): I10 - Essential (primary) hypertension (7) Atrial fibrillation Priority: Secondary Status: Chronic Qualifiers: Atrial fibrillation type: paroxysmal Qualified Code(s): I48.0 - Paroxysmal atrial fibrillation - Discharge Medications Prescriptions: OxyCODONE/APAP 5/325 [Percocet 5/325 MG] 1 each PO Q4HR PRN #20 tab PRN Reason: Pain Baclofen [Lioresal] 10 mg PO Q8HR PRN #15 tab PRN Reason: Spasms Doxazosin Mesylate [Cardura] 2 mg PO HS #30 tablet metFORMIN [Glucophage] 500 mg PO BIDWM #60 tab Home Medications: Gabapentin [Neurontin] 400 mg PO QAM 12/06/16 [History] Levothyroxine [Synthroid] 88 mcg PO 0630 12/06/16 [History] Methenamine Hippurate [Hiprex] 1 gm PO BID 12/06/16 [History] Ferrous Sulfate [Iron] 325 mg PO DAILY 04/17/17 [History] Iron 65 mg PO BID 04/17/17 [History] Lovastatin [Mevacor] 20 mg PO DAILY 04/17/17 [History] Paroxetine [Paxil] 20 mg PO DAILY 04/17/17 [History] Potassium Chloride [K-Tab ER] 20 meq PO DAILY 04/17/17 [History] Baclofen [Lioresal] 10 mg PO Q8HR PRN #15 tab 04/21/17 [Rx] Doxazosin Mesylate [Cardura] 2 mg PO HS #30 tablet 04/21/17 [Rx] Furosemide [Lasix] 20 mg PO DAILY #0 04/21/17 [Rx] Lisinopril 40 mg PO DAILY #0 04/21/17 [Rx] Lisinopril [Zestril] 40 mg PO DAILY #0 04/21/17 [Rx] OxyCODONE/APAP 5/325 [Percocet 5/325 MG] 1 each PO Q4HR PRN #20 tab 04/21/17 [Rx ] amLODIPine [Norvasc] 5 mg PO QAM #0 04/21/17 [Rx] metFORMIN [Glucophage] 500 mg PO BIDWM #60 tab 04/21/17 [Rx] Allergies/Adverse Reactions: 3 Allergy/AdvReac Type Severity Reaction Status Date / Time No Known Allergies Allergy Verified 12/06/16 17:11 Date of admission: 04/18/17 13:37 Primary care physician: Edna Whelan Consults: 04/20/17 10:27 Consult to Occupational Therapy [CONS] Routine Comment: Evaluate, develop and implement POC Reason for Consult: Sacral fracture - Patient Status Disposition: Home Health Service Condition: Fair Functional capacity at discharge: uses cane/walker Overall status at discharge: patient is progressing back to baseline - Discharge Instructions Follow Up With: Edna Whelan, CASCADE OPERATOR [Primary Care Provider] - 1 week - Diet and Activity Activity: as per physical therapy Diet: advance to your usual diet Hospital course: Ms. Murray is a 76 year old female who came to the emergency room after experiencing a fall at home. Evaluation in the emergency room included CT of the abdomen and pelvis. There was bilateral sacral fracture bilaterally paralleling the SI joint with mild sclerosis. 6 was not felt to be a fracture requiring surgical intervention. She was admitted to [facility]. Initial orders were written by the emergency room physician. Dr. Cyr saw her April 17 and performed a history and physical. I assumed her care on April 18. She had physical therapy and occupational therapy evaluations with ongoing intervention. She had inconsistent cooperation with the therapists. There appears to possibly be some underlying dementia present. PCP can determine if referral for mental health evaluation is appropriate. On the day of discharge she was able to ambulate in the hallway with 2 person assistance. Due to her sporadic cooperation with therapists it was felt she was not a good candidate for swing bed placement. Her daughter refused to consider SNF placement. Daughter felt it was best for her to be discharged home with home health services provided. A manual wheelchair will be ordered since it will be the patient's primary means of mobility in the home at this time. Daughter inquired about hospice services. Her PCP can determine if this is appropriate after evaluating her level of progress in therapy. She will follow with her PCP Edna Whelan CNP within 1 week. Amiodarone was held and she returned to normal sinus rhythm from her junctional rhythm seen on admission. She will remain off amiodarone. She was given low- dose metoprolol to help maintain NSR and control blood pressure. She will be given Cardura to assist in blood pressure control. Lisinopril and Norvasc doses were decreased. - Time Spent with Patient Total time spent providing and/or coordinating discharge services: - Constitutional Vitals: Temp Pulse Resp BP Pulse Ox 97.5 F L 54 18 170/74 96 04/21/17 12:11 04/21/17 12:11 04/21/17 12:11 04/21/17 12:11 04/21/17 12:11 - VTE Documentation of Mechanical Device: Graduated compression elastic hosiery
--- NOTE | 2017-04-21 14:27 | Physician Discharge Referral ---
Home Health/Hosp Referral Info Transfer to: Home Health Attending Provider: Dov Provider in Charge Post Discharge: PCP (Edna Whelan CNP) - Diagnosis (1) Closed sacral fracture Priority: Primary Status: Acute (2) Falls Priority: Secondary Status: Acute (3) Bradycardia Priority: Secondary Status: Resolved (4) Hypothyroidism Priority: Secondary Status: Chronic (5) DM type 2 (diabetes mellitus, type 2) Priority: Secondary Status: Chronic (6) Hypertension Priority: Secondary Status: Chronic (7) Atrial fibrillation Priority: Secondary Status: Chronic - Respiratory Orders Smoking Cessation: Smoking cessation has been advised. For more information, call the [place] Tobacco Quit Line at 9-047-EKNP-NOW. - Diet/Nutrition Diet/Nutrition Orders: Regular - Activity Activity Orders: Walker - Services Needed Following services are medically necessary services: Nursing, Home Health Aide, Physical Therapy, Occupational Therapy - Transfer Medications Prescriptions: OxyCODONE/APAP 5/325 [Percocet 5/325 MG] 1 each PO Q4HR PRN #20 tab PRN Reason: Pain Baclofen [Lioresal] 10 mg PO Q8HR PRN #15 tab PRN Reason: Spasms Doxazosin Mesylate [Cardura] 2 mg PO HS #30 tablet metFORMIN [Glucophage] 500 mg PO BIDWM #60 tab Home Medications: Gabapentin [Neurontin] 400 mg PO QAM 12/06/16 [History] Levothyroxine [Synthroid] 88 mcg PO 0630 12/06/16 [History] Methenamine Hippurate [Hiprex] 1 gm PO BID 12/06/16 [History] Ferrous Sulfate [Iron] 325 mg PO DAILY 04/17/17 [History] Iron 65 mg PO BID 04/17/17 [History] Lovastatin [Mevacor] 20 mg PO DAILY 04/17/17 [History] Paroxetine [Paxil] 20 mg PO DAILY 04/17/17 [History] Potassium Chloride [K-Tab ER] 20 meq PO DAILY 04/17/17 [History] Baclofen [Lioresal] 10 mg PO Q8HR PRN #15 tab 04/21/17 [Rx] Doxazosin Mesylate [Cardura] 2 mg PO HS #30 tablet 04/21/17 [Rx] Furosemide [Lasix] 20 mg PO DAILY #0 04/21/17 [Rx] Lisinopril 40 mg PO DAILY #0 04/21/17 [Rx] Lisinopril [Zestril] 40 mg PO DAILY #0 04/21/17 [Rx] OxyCODONE/APAP 5/325 [Percocet 5/325 MG] 1 each PO Q4HR PRN #20 tab 04/21/17 [Rx ] amLODIPine [Norvasc] 5 mg PO QAM #0 04/21/17 [Rx] metFORMIN [Glucophage] 500 mg PO BIDWM #60 tab 04/21/17 [Rx] Allergies/Adverse Reactions: 3 Allergy/AdvReac Type Severity Reaction Status Date / Time No Known Allergies Allergy Verified 12/06/16 17:11 Certification: Further, I certify that my clinical findings support that this patient is homebound (i.e. absences from home require considerable and taxing effort and are for medical reasons or sabianism services or infrequently or short duration when for other reasons) because: Homebound Reason: Leaving home requires considerable and taxing effort due to condition (Sacral fracture with impaired walking ability) Attestation: My signature below is to certify that this patient is under my care and that I, or nurse practitioner, or a physician's respiratory equipment assistant working with me, has a face-to -face encounter with this patient.
== END 2017-04-21 18:00 | disposition home health service (06) | DRG 552 ==
LOC: INPPIK 12:53 → EMEROOPIK 12:53 → INPPIK 15:29
PROVIDERS: ADMIT Family Medicine; ATTEND Internal Medicine

== ENCOUNTER 2018-09-28 12:03 | Inpatient (IN) ==
--- NOTE | 2018-09-28 12:09 | Emergency Department Note ---
Disposition Clinical Impression: UTI (urinary tract infection), Confusion, CHF (congestive heart failure) Disposition: Admitted As Inpatient Condition: Fair Referrals: NONE,PCP [Non-Partnered Physician] - Forms: ED Satisfaction Letter Time of Disposition: 14:19 SOB HPI - General Chief Complaint: ED Shortness of Breath/Dyspnea Stated Complaint: SOB and AMS Time Seen by Provider: 09/28/18 12:09 Source: patient, family Mode of arrival: ambulatory Limitations: no limitations Nursing Notes Reviewed: Yes Vital Signs Reviewed: Yes - History of Present Illness 78-year-old female who presents today with shortness of breath and altered mental status was 3 days. Apparently yesterday she ran out of the house and was running down the road and the International Sales Representative had to be called twice. She has called the slack cooper a couple of times stating that her family was not treating her well and that she thought that they were thinking that she was crazy. Family states that they need some help with her as they cannot control her at this time. They taken her to her primary care physician's office who sent her up here for evaluation for the worsening confusion and altered mental status. Baseline she does have some dementia but this is acutely worse for her. Family states that whenever she gets mean an abusive like this pain is something strong. Patient is being treated for shingles in her ear. She was worked up for that previously he refused any sort of medications for it she has already been evaluated for that. Family states that she has had worsening shortness of breath for last 3 or 4 days but no cough and no fever. She states she thinks she has a fever today. Pt Subjective Complaint: shortness of breath - Related Data Home Medications Medication Instructions Recorded Confirmed DULoxetine [Cymbalta] 60 mg PO DAILY 08/17/18 09/28/18 Furosemide [Lasix] 40 mg PO DAILY 08/17/18 09/28/18 Glimepiride [Amaryl] 2 mg PO 0800 08/17/18 09/28/18 Levothyroxine [Synthroid] 75 mcg PO DAILY 08/17/18 09/28/18 Methenamine Hippurate [Hiprex] 1 gm PO BID 08/17/18 09/28/18 Metoprolol Tartrate 100 mg PO BID 08/17/18 09/28/18 Potassium Chloride [Klor-Con 10] 20 meq PO DAILY 08/17/18 09/28/18 dilTIAZem HCl [Diltiazem ER] 360 mg PO DAILY 08/17/18 09/28/18 hydrALAZINE [HydrALAZINE] 100 mg PO TID 08/17/18 09/28/18 traZODone [TraZODone] 50 mg PO HS 08/17/18 09/28/18 Allergies Allergy/AdvReac Type Severity Reaction Status Date / Time No Known Allergies Allergy Verified 01/19/18 17:16 Review of Systems: All other systems are negative except as noted/marked Chart generated with voice recognition software Nursing notes reviewed Old records reviewed Past Medical History - Past Medical History Attestation: Yes The following information was validated with the patient. Source: patient, old records reviewed, nursing notes reviewed Medical history: Reports: arthritis, atrial fibrillation, CVA, diabetes, hyperlipidemia, hypertension, osteoporosis, thyroid disease, other Surgical history: Reports: hysterectomy, orthopedic, other, other Psychiatric history: Reports: anxiety, depression - Social History Smoking Status: Never smoker Smokeless Tobacco Status: No Alcohol use: Reports: none Drug use: Reports: none Physical Exam General: Mild distress, VSS Head: normocephalic, atraumatic Eyes: EOMI, PERRLA mouth: moist mucous membranes Neck: NO CLA, Supple Chest wall: normal rise, no crepitus, no deformity noted, excoriations across the right upper back with no signs of infection Lungs: moving air well, no distress Heart: Tachycardic irregularly irregular consistent with A. fib which patient lives in chronically per family Abd: soft, nontender, BS normal : deferred MSK: strength equal in all four extremities Ext: moves all four extremities, no obvious deformities Skin: cap refill normal, warm, dry neuro : CN2-12 grossly intact, A&Ox3 Psych: anxious Course Vital Signs Temperature 97.5 F L 09/28/18 12:05 Pulse Rate 116 09/28/18 12:05 Respiratory Rate 20 09/28/18 12:05 Blood Pressure 153/93 09/28/18 12:05 O2 Sat by Pulse Oximetry 93 09/28/18 12:05 Temperature 97.5 F L 09/28/18 12:19 Pulse Rate 92 09/28/18 14:24 Respiratory Rate 09/28/18 14:24 Blood Pressure 169/100 09/28/18 14:24 O2 Sat by Pulse Oximetry 99 09/28/18 14:24 Oxygen Delivery Oxygen Delivery Nasal Cannula Shortness of Breath/Dyspnea - [facility] Narrative Medical decision making narrative: 78-year-old dementia patient presents today with worsening acute confusion and altered mental status at home. Family states they know something is wrong with her. They state that they are worried about her because she continues to act out and appropriately. She has UTI which is mild and started on Zosyn. She also has shortness of breath and it looks like she is having developing some CHF. They give her some Lasix. No PE today. Given the shortness of breath and the UTI and the increased confusion think it would be worth keeping her in the hospital keeping an eye on her. Dr. Monae agreed with me. - Medical Records Medical records reviewed: Yes I reviewed the patient's medical records. - Lab Data Lab results reviewed: Yes I reviewed the patient's lab results. Result diagrams: 09/28/18 12:32 09/28/18 12:32 Lab Results 09/28/18 09/28/18 09/28/18 Range/Units 12:32 12:32 12:32 WBC 8.1 (4.3-11.1) K/mcL RBC 3.90 (3.82-4.97) M/mcL Hgb 11.8 (11.5-15.4) g/dL Hct 37.2 (35.3-44.9) % MCV 95.4 (83.0-100.0) fL MCH 30.3 (28.0-33.3) pg MCHC 31.7 (31.6-35.5) g/dL RDW 15.9 H (11.5-14.5) % Plt Count 229 (140-400) K/mcL MPV 11.0 (9.4-12.4) fL Immature Gran % 0.5 (0-4) % Seg Neutrophils % 78.6 % Lymphocytes % 10.5 % Monocytes % 7.3 % Eosinophils % 2.5 % Basophils % 0.6 % Neutrophils # 6.3 (1.6-8.9) K/mcL Lymphocytes # 0.9 (0.6-4.6) K/mcL Monocytes # 0.6 (0.0-1.3) K/mcL Eosinophils # 0.2 (0.0-0.6) K/mcL Basophils # 0.1 (0.0-0.2) K/mcL Platelet Estimate Normal (Normal) PT 10.8 (9.4-12.1) Seconds INR 1.0 APTT 33.6 (26.0-36.0) Seconds Sample Site ABG pH (7.32-7.45) pH Units ABG pCO2 (35-45) mmHg ABG pO2 (85-104) mmHg ABG HCO3 (21-27) mEq/L ABG Total CO2 (20-26) mEq/L ABG O2 Saturation (95-98) % ABG Base Excess (-2 to 3) mEq/L Sincere Test O2 Delivery Device Inspired O2 (1-15=lpm dt15-255=%) Sodium 140 (136-145) mEq/L Potassium 3.9 (3.5-5.1) mEq/L Chloride 104 (98-107) mEq/L Carbon Dioxide 27 (23-29) mEq/L BUN 15 (8-23) mg/dL Creatinine 0.81 (0.60-1.20) mg/dL Est GFR ( Amer) > 60 (> 60) Est GFR (Non-Af Amer) > 60 (> 60) BUN/Creatinine Ratio 19 (6-26) Glucose 262 H (70-105) mg/dL Calculated Osmolality 300 (280-300) Lactic Acid (0.5-2.2) mmol/L Calcium 9.0 (8.6-10.3) mg/dL Total Bilirubin 0.8 (0.3-1.0) mg/dL Direct Bilirubin 0.2 (0.0-0.2) mg/dL Indirect Bilirubin 0.6 (0.0-1.2) mg/dL AST 19 (13-39) Units/L ALT 14 (7-52) Units/L Alkaline Phosphatase 131 H (34-104) Units/L Troponin I < 0.03 (< 0.04) ng/mL B-Natriuretic Peptide (Less than 100) pg/mL Serum Total Protein 7.0 (6.4-8.9) g/dL Albumin 3.8 (3.5-5.7) g/dL Globulin 3.2 (2.4-3.5) g/dL Albumin/Globulin Ratio 1.2 (1.1-2.2) Urine Color (Yellow) Urine Clarity (Clear) Urine pH (5.0-8.0) pH Units Ur Specific [place] (1.010-1.025) Urine Protein (Neg-Trace) mg/dL Urine Glucose (UA) (Normal) mg/dL Urine Ketones (Negative) mg/dL Urine Blood (Negative) Urine Nitrite (Negative) Urine Bilirubin (Negative) Urine Urobilinogen (Normal) mg/dL Ur Leukocyte Esterase (Negative) Urine Microscopic RBC (0-3) per hpf Urine Microscopic WBC (0-3) per hpf Ur Squamous Epith Cells (None-Few) per lpf Urine Bacteria (None-Few) per hpf Ur Culture Indicated? (NO) 09/28/18 09/28/18 09/28/18 Range/Units 12:32 12:32 12:49 WBC (4.3-11.1) K/mcL RBC (3.82-4.97) M/mcL Hgb (11.5-15.4) g/dL Hct (35.3-44.9) % MCV (83.0-100.0) fL MCH (28.0-33.3) pg MCHC (31.6-35.5) g/dL RDW (11.5-14.5) % Plt Count (140-400) K/mcL MPV (9.4-12.4) fL Immature Gran % (0-4) % Seg Neutrophils % % Lymphocytes % % Monocytes % % Eosinophils % % Basophils % % Neutrophils # (1.6-8.9) K/mcL Lymphocytes # (0.6-4.6) K/mcL Monocytes # (0.0-1.3) K/mcL Eosinophils # (0.0-0.6) K/mcL Basophils # (0.0-0.2) K/mcL Platelet Estimate (Normal) PT (9.4-12.1) Seconds INR APTT (26.0-36.0) Seconds Sample Site ABG pH (7.32-7.45) pH Units ABG pCO2 (35-45) mmHg ABG pO2 (85-104) mmHg ABG HCO3 (21-27) mEq/L ABG Total CO2 (20-26) mEq/L ABG O2 Saturation (95-98) % ABG Base Excess (-2 to 3) mEq/L Sincere Test O2 Delivery Device Inspired O2 (1-15=lpm bw00-363=%) Sodium (136-145) mEq/L Potassium (3.5-5.1) mEq/L Chloride (98-107) mEq/L Carbon Dioxide (23-29) mEq/L BUN (8-23) mg/dL Creatinine (0.60-1.20) mg/dL Est GFR ( Amer) (> 60) Est GFR (Non-Af Amer) (> 60) BUN/Creatinine Ratio (6-26) Glucose (70-105) mg/dL Calculated Osmolality (280-300) Lactic Acid 1.5 (0.5-2.2) mmol/L Calcium (8.6-10.3) mg/dL Total Bilirubin (0.3-1.0) mg/dL Direct Bilirubin (0.0-0.2) mg/dL Indirect Bilirubin (0.0-1.2) mg/dL AST (13-39) Units/L ALT (7-52) Units/L Alkaline Phosphatase (34-104) Units/L Troponin I (< 0.04) ng/mL B-Natriuretic Peptide 1031 H (Less than 100) pg/mL Serum Total Protein (6.4-8.9) g/dL Albumin (3.5-5.7) g/dL Globulin (2.4-3.5) g/dL Albumin/Globulin Ratio (1.1-2.2) Urine Color Yellow (Yellow) Urine Clarity Cloudy A (Clear) Urine pH 6.0 (5.0-8.0) pH Units Ur Specific [place] 1.010 (1.010-1.025) Urine Protein Negative (Neg-Trace) mg/dL Urine Glucose (UA) Normal (Normal) mg/dL Urine Ketones Negative (Negative) mg/dL Urine Blood Trace-intact H (Negative) Urine Nitrite Negative (Negative) Urine Bilirubin Negative (Negative) Urine Urobilinogen Normal (Normal) mg/dL Ur Leukocyte Esterase Negative (Negative) Urine Microscopic RBC 0-3 (0-3) per hpf Urine Microscopic WBC 3-5 H (0-3) per hpf Ur Squamous Epith Cells Few (None-Few) per lpf Urine Bacteria Moderate H (None-Few) per hpf Ur Culture Indicated? NO (NO) 02/13/19 Range/Units 13:07 WBC (4.3-11.1) K/mcL RBC (3.82-4.97) M/mcL Hgb (11.5-15.4) g/dL Hct (35.3-44.9) % MCV (83.0-100.0) fL MCH (28.0-33.3) pg MCHC (31.6-35.5) g/dL RDW (11.5-14.5) % Plt Count (140-400) K/mcL MPV (9.4-12.4) fL Immature Gran % (0-4) % Seg Neutrophils % % Lymphocytes % % Monocytes % % Eosinophils % % Basophils % % Neutrophils # (1.6-8.9) K/mcL Lymphocytes # (0.6-4.6) K/mcL Monocytes # (0.0-1.3) K/mcL Eosinophils # (0.0-0.6) K/mcL Basophils # (0.0-0.2) K/mcL Platelet Estimate (Normal) PT (9.4-12.1) Seconds INR APTT (26.0-36.0) Seconds Sample Site L Brach ABG pH 7.45 (7.32-7.45) pH Units ABG pCO2 40 (35-45) mmHg ABG pO2 88 (85-104) mmHg ABG HCO3 28 H (21-27) mEq/L ABG Total CO2 29 H (20-26) mEq/L ABG O2 Saturation 97 (95-98) % ABG Base Excess 3 (-2 to 3) mEq/L Sincere Test Positive O2 Delivery Device Cannula Inspired O2 2.0 (1-15=lpm cq61-076=%) Sodium (136-145) mEq/L Potassium (3.5-5.1) mEq/L Chloride (98-107) mEq/L Carbon Dioxide (23-29) mEq/L BUN (8-23) mg/dL Creatinine (0.60-1.20) mg/dL Est GFR ( Amer) (> 60) Est GFR (Non-Af Amer) (> 60) BUN/Creatinine Ratio (6-26) Glucose (70-105) mg/dL Calculated Osmolality (280-300) Lactic Acid (0.5-2.2) mmol/L Calcium (8.6-10.3) mg/dL Total Bilirubin (0.3-1.0) mg/dL Direct Bilirubin (0.0-0.2) mg/dL Indirect Bilirubin (0.0-1.2) mg/dL AST (13-39) Units/L ALT (7-52) Units/L Alkaline Phosphatase (34-104) Units/L Troponin I (< 0.04) ng/mL B-Natriuretic Peptide (Less than 100) pg/mL Serum Total Protein (6.4-8.9) g/dL Albumin (3.5-5.7) g/dL Globulin (2.4-3.5) g/dL Albumin/Globulin Ratio (1.1-2.2) Urine Color (Yellow) Urine Clarity (Clear) Urine pH (5.0-8.0) pH Units Ur Specific [place] (1.010-1.025) Urine Protein (Neg-Trace) mg/dL Urine Glucose (UA) (Normal) mg/dL Urine Ketones (Negative) mg/dL Urine Blood (Negative) Urine Nitrite (Negative) Urine Bilirubin (Negative) Urine Urobilinogen (Normal) mg/dL Ur Leukocyte Esterase (Negative) Urine Microscopic RBC (0-3) per hpf Urine Microscopic WBC (0-3) per hpf Ur Squamous Epith Cells (None-Few) per lpf Urine Bacteria (None-Few) per hpf Ur Culture Indicated? (NO) - Radiology Data Radiology results reviewed: Yes I reviewed the patient's radiology results. EXAMINATION: CTA OF THE CHEST 09/28/2018 1:55 pm TECHNIQUE: CTA of the chest was performed after the administration of intravenous contrast. Multiplanar reformatted images are provided for review. MIP images are provided for review. Dose modulation, iterative reconstruction, and/or weight based adjustment of the mA/kV was utilized to reduce the radiation dose to as low as reasonably achievable. COMPARISON: CT chest without contrast 12/06/2016 HISTORY: ORDERING SYSTEM PROVIDED HISTORY: dyspnea 75 ml of [id number] FINDINGS: Motion limited study. Pulmonary Arteries: No filling defects within the central or proximal segmental pulmonary arteries to suggest pulmonary embolism. Evaluation of the branches beyond this level is limited due to respiratory motion. Main pulmonary artery measures 3.4 cm in diameter suggesting pulmonary hypertension. Mediastinum: Thoracic aorta is normal in caliber with atherosclerotic calcification also involving the origins of the great vessels and coronary arteries. Mild cardiomegaly. No pericardial effusion. No mediastinal, hilar, or axillary lymphadenopathy. Lungs/pleura: Mosaic attenuation of the lungs suggesting areas of air trapping. Trace right pleural effusion. No pneumothorax. Upper Abdomen: Stable small amount of pneumobilia. The upper abdomen is otherwise grossly unremarkable. Soft Tissues/Bones: No acute bone or soft tissue abnormality. CT/CT angio chest IMPRESSION: Somewhat limited study due to respiratory motion. No evidence of central or proximal segmental pulmonary embolism. Enlarged main pulmonary artery suggesting pulmonary hypertension. Mosaic attenuation the lung suggesting areas of air trapping. Trace right pleural effusion. Coronary artery calcifications D/ / Kevin Crowley / Kevin Crowley Interpreting Provider: Kevin Crowley INATION: CT OF THE HEAD WITHOUT CONTRAST 09/28/2018 1:55 pm TECHNIQUE: CT of the head was performed without the administration of intravenous contrast. Dose modulation, iterative reconstruction, and/or weight based adjustment of the mA/kV was utilized to reduce the radiation dose to as low as reasonably achievable. COMPARISON: April 18, 2017 HISTORY: ORDERING SYSTEM PROVIDED HISTORY: ams FINDINGS: BRAIN/VENTRICLES: There is no acute intracranial hemorrhage, mass effect or midline shift. No abnormal extra-axial fluid collection. The phillips-white differentiation is maintained without evidence of an acute infarct. There is no evidence of hydrocephalus. Remote bilateral lacunar infarcts are noted. Scattered hypodensity is present in the white matter consistent with chronic microvascular change. Vertebral and cavernous carotid arteries are calcified. ORBITS: The visualized portion of the orbits demonstrate no acute abnormality. SINUSES: The visualized paranasal sinuses demonstrate no acute abnormality. Mastoid air cells are chronically underpneumatized, consistent with chronic inflammation. SOFT TISSUES/SKULL: No acute abnormality of the visualized skull or soft tissues. Estimated biologic radiation dose for this procedure:844 mGy/cm2. CT/CT head/brain wo con IMPRESSION: No acute intracranial abnormality. Senescent changes including chronic microvascular change. Old lacunar infarcts. D/ / 09/28/2018 14:09:53 Eloisa Johns MD / benji Interpreting Provider: Eloisa Johns MD - EKG Data EKG attestation: Yes I reviewed and interpreted this EKG. EKG results narrative: EKG interpreted by myself as A. fib with a rate of 107 and QTC of [address] elevation she does have some flipped T waves in V4 56 and 3 I compared this with a prior EKG from 08/17/2018 no acute changes are noted
[2018-09-28] MEDS ORDERED: Isovue-370 500 ML BOTTLE IVP ONE (12:17)
[2018-09-28] MEDS ORDERED: 0.9 % Sodium Chloride 500 ML IVC ONE (12:21)
[2018-09-28 12:52] LABS: Basophils # 0.1 K/mcL (0.0-0.2); Basophils % 0.6 %; Eosinophils # 0.2 K/mcL (0.0-0.6); Eosinophils % 2.5 %; Hematocrit 37.2 % (35.3-44.9); Hemoglobin 11.8 g/dL (11.5-15.4); Immature Granulocytes % 0.5 % (0-4); Lymphocytes # 0.9 K/mcL (0.6-4.6); Lymphocytes % 10.5 %; Mean Corpuscular HGB Conc 31.7 g/dL (31.6-35.5); Mean Corpuscular Hemoglobin 30.3 pg (28.0-33.3); Mean Corpuscular Volume 95.4 fL (83.0-100.0); Monocytes # 0.6 K/mcL (0.0-1.3); Monocytes % 7.3 %; Neutrophils # 6.3 K/mcL (1.6-8.9); Platelet Count 229 K/mcL (140-400); Red Cell Distribution Width 15.9 % (11.5-14.5); Segmented Neutrophils % 78.6 %
[2018-09-28 13:03] LABS: Bilirubin,Urine Negative (Negative); Blood,Urine Trace-intact (Negative); Clarity,Urine Cloudy (Clear); Color,Urine Yellow (Yellow); Glucose,Urine (UA) Normal (Normal); Ketones,Urine Negative (Negative); Leukocyte Esterase,Urine Negative (Negative); Nitrite,Urine Negative (Negative); Protein,Urine Negative (Neg-Trace); Urobilinogen,Urine Normal (Normal)
[2018-09-28 13:10] LABS: ABG Base Excess 3 mEq/L (-2 to 3); ABG HCO3 28 mEq/L (21-27); ABG Oxygen Saturation 97 % (95-98); ABG PCO2 40 mmHg (35-45); ABG PH 7.45 pH Units (7.32-7.45); ABG PO2 88 mmHg (85-104); ABG TCO2 29 mEq/L (20-26)
[2018-09-28 13:13] LABS: Alanine Aminotransferase 14 Units/L (7-52); Albumin 3.8 g/dL (3.5-5.7); Albumin/Globulin Ratio 1.2 (1.1-2.2); Alkaline Phosphatase 131 Units/L (34-104); Aspartate Amino Transferase 19 Units/L (13-39); BUN/Creatinine Ratio 19 (6-26); Bilirubin,Direct 0.2 mg/dL (0.0-0.2); Bilirubin,Indirect 0.6 mg/dL (0.0-1.2); Bilirubin,Total 0.8 mg/dL (0.3-1.0); Blood Urea Nitrogen 15 mg/dL (8-23); Carbon Dioxide 27 mEq/L (23-29); Chloride 104 mEq/L (98-107); Globulin 3.2 g/dL (2.4-3.5); Glucose 262 mg/dL (70-105); Osmolality,Calculated 300 (280-300); Potassium 3.9 mEq/L (3.5-5.1); Sodium 140 mEq/L (136-145); Troponin I < 0.03 ng/mL (< 0.04); eGFR For Non-African Americans > 60 (> 60)
[2018-09-28 13:14] LABS: Prothrombin Time 10.8 Seconds (9.4-12.1)
[2018-09-28 13:17] LABS: Activated Partial Thrombo Time 33.6 Seconds (26.0-36.0)
[2018-09-28 13:18] LABS: RBC,Urine 0-3 per hpf (0-3); Squamous Epithelial Cell,Urine Few per lpf (None-Few)
[2018-09-28 13:19] LABS: Bacteria,Urine Moderate per hpf (None-Few)
[2018-09-28 13:41] LABS: Platelet Estimate Normal (Normal)
[2018-09-28] MEDS ORDERED: Furosemide 40 MG/4 ML VIAL IVP ONE (13:58)
[2018-09-28] MEDS ORDERED: Piperacillin/Tazobactam 3.375 GM in 0.9 % Sodium Chloride Mini Bag 100 ML IVPB ONE (14:13)
[2018-09-28] MEDS ORDERED: Mag Hydrox/Al Hydrox/Simeth 30 ML UDC PO PRN (14:53)
[2018-09-28] MEDS ORDERED: Acetaminophen 325 MG TABLET PO PRN (14:53)
[2018-09-28] MEDS ORDERED: MOM Conc 10 ML UD.LIQ PO PRN (14:53)
[2018-09-28] MEDS ORDERED: Ondansetron 4 MG/2 ML VIAL IVP PRN (14:53)
[2018-09-28] MEDS ORDERED: Naloxone 0.4 MG/ML INJ IVP PRN (14:53)
[2018-09-28] MEDS ORDERED: hydrALAZINE 25 MG TABLET PO SCH (15:00)
--- NOTE | 2018-09-28 16:56 | Electrocardiograph Report ---
[place] [id number] Test Date: 2018-09-28 Pat Name: Valerie Murray Department: EDP-16 Room: [facility] Gender: F Ad Writer: : 1940 Requested By: Maria Del Carmen Mahajan Order Number: [id number] Reading MD: Caesar Richardson Measurements Intervals [place] Rate: 107 P: [place]: QRS: 27 QRSD: 126 T: -70 QT: 375 QTc: 501 Interpretive Statements Atrial fibrillation Right bundle branch block Repol abnrm suggests ischemia, diffuse leads Electronically Signed On 09-28-2018 16:55:10 EST by Caesar Richardson
--- NOTE | 2018-09-28 17:00 | Internal Med History&Physical ---
Date of Encounter: 09/28/18 Time of Encounter: 16:30 Assessment and Plan (1) CHF (congestive heart failure) Current visit: Yes Status: Acute Metoprolol and Lasix will be continued. Lisinopril, Lanoxin, and Imdur will be added. Qualifiers: Heart failure type: diastolic Heart failure chronicity: acute on chronic Qualified Code(s): I50.33 - Acute on chronic diastolic (congestive) heart failure (2) Hypertension Current visit: No Status: Chronic Continue metoprolol and diltiazem. Add lisinopril. Qualifiers: Hypertension type: essential hypertension Qualified Code(s): I10 - Essential (primary) hypertension (3) DM type 2 (diabetes mellitus, type 2) Current visit: No Status: Chronic Check hemoglobin A1c in a.m. Qualifiers: Diabetes mellitus care home insulin use: without ferry terminal agent use Diabetes mellitus complication status: with neurologic complications Diabetes mellitus complication detail: with unspecified neuropathy Qualified Code(s): E11.40 - Type 2 diabetes mellitus with diabetic neuropathy, unspecified (4) Atrial fibrillation Current visit: No Status: Chronic Med list shows no anticoagulant or antiplatelet agent. PT and OT evaluations will be done to assess fall risk. Qualifiers: Atrial fibrillation type: paroxysmal Qualified Code(s): I48.0 - Paroxysmal atrial fibrillation (5) Hypothyroidism Current visit: No Status: Chronic Check TSH in a.m. Qualifiers: Hypothyroidism type: unspecified Qualified Code(s): E03.9 - Hypothyroidism, unspecified (6) B12 deficiency Current visit: Yes Status: Acute B12 level was 175 on 08/13/2017. Recheck in a.m. Internal Medicine - H&P: HPI Chief complaint: Dyspnea, confusion Admitted From: Emergency Dept Plans for Post Hospital Care: Home History of present illness: Ms. Murray is a 78 year old female who came to emergency room with reported dyspnea and altered mental status for 3 days. The ER note reports she was found running down the road yesterday and the cyber ops planner was called to assist. She has reportedly called the cyber ops planner at least twice in the past few days stating her family was not treating her well. She was evaluated in emergency room and was found to have significantly elevated BN peptide. She was admitted to [facility] floor for ongoing care needs. She is a challenging historian due to extreme hard of hearing and probable underlying dementia. Past Med Surg Social Fam HX - Past Medical History Medical history: arthritis, atrial fibrillation, CVA, diabetes, hyperlipidemia, hypertension, osteoporosis, thyroid disease, other Additional medical history: shingles. bells palsy. stroke age 34 Psychiatric history: anxiety, depression - Past Surgical History Surgical History: hysterectomy, orthopedic, other, other Additional surgical history: Bilateral ankle fractures, right elbow fracture in 5 places, gastric bypass - Social History Smoking Status: Never smoker Smokeless Tobacco Status: No Alcohol use: none Drug use: none - Family History Father Living Status: Hx Family Cardiac Disorders: Yes Mother Living Status: Internal Medicine - H&P: Meds DULoxetine [Cymbalta] 60 mg PO DAILY 08/17/18 [History] Furosemide [Lasix] 40 mg PO DAILY 08/17/18 [History] Glimepiride [Amaryl] 2 mg PO 0800 08/17/18 [History] Levothyroxine [Synthroid] 75 mcg PO DAILY 08/17/18 [History] Methenamine Hippurate [Hiprex] 1 gm PO BID 08/17/18 [History] Metoprolol Tartrate 100 mg PO BID 08/17/18 [History] Potassium Chloride [Klor-Con 10] 20 meq PO DAILY 08/17/18 [History] dilTIAZem HCl [Diltiazem ER] 360 mg PO DAILY 08/17/18 [History] hydrALAZINE [HydrALAZINE] 100 mg PO TID 08/17/18 [History] traZODone [TraZODone] 50 mg PO HS 08/17/18 [History] Allergy/AdvReac Type Severity Reaction Status Date / Time No Known Allergies Allergy Verified 01/19/18 17:16 All Systems PM: A 10-system review of systems was performed and is negative for pertinent findings except as documented above in the HPI. Review of systems: Gen.: Her weight has been stable at approximately 62 kg since the January 2018 [facility] hospitalization Cardiovascular: She has history of hypertension and atrial fibrillation. Echocardiogram 01/20/2018 showed LVEF of 55%. Interventricular septum and posterior wall thickness measurements were 1.40 cm each. Diastolic dysfunction could not be easily assessed because of atrial fibrillation. There was LAE at 4.10 cm. Mild tricuspid regurgitation and mild pulmonary hypertension was noted although estimated RVSP was not recorded. She denies known DVT or pulmonary embolus. She is uncertain if she has had DE. Respiratory: She states she is a lifelong nonsmoker and has no known chronic lung disease. She has had pneumonia in the past. 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 She claims she had CVA in the past but does not recall details. She denies seizures. Endocrine: She states she has been diagnosed with DM 2 for several years. She has hypothyroidism but no known hyperlipidemia Hematology/oncology: She denies blood disorders cancers or anemia Psychiatric: She has diagnosis of depression but denies anxiety other mental health issues [place] skeletal: She had a closed sacral fracture with hospitalization but treated nonoperatively April 2017. She denies arthritis gout or other bone joint or muscle disorders. - Constitutional Vitals: Temp Pulse Resp BP Pulse Ox 98.0 F 100 14 160/97 99 09/28/18 16:01 09/28/18 16:01 09/28/18 16:01 09/28/18 16:01 09/28/18 16:01 Exam: Gen.: She is a well-developed well-nourished female lying in bed who appears in no acute distress HEENT: Head is atraumatic. Eyes: EOMI. There is no scleral icterus. She has left lower lid ectropion. Mouth: Mucosa is moist Neck: Supple and nontender. There is no thyromegaly or adenopathy noted. Heart: Irregularly irregular with rate approximately 100/m Lungs: No wheezes or crackles are heard. Abdomen: Soft and nontender. No masses or guarding are noted. Extremities: There is no cyanosis edema or clubbing noted. Dorsalis pedis and posttibial pulses are trace palpable bilaterally. 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 Cranial nerves: Smile is asymmetric with slight left nasolabial fold flattening. There is decreased movement of the left forehead. Tongue protrudes midline EOMI. Motor: There is no pronator drift. Cerebellar: Finger to nose is intact bila terally. Skin: Warm and dry Internal Med - H&P Results - Labs CBC & Chem 7: 09/28/18 12:32 09/28/18 12:32 Labs: Short CBC 09/28/18 Range/Units 12:32 WBC 8.1 (4.3-11.1) K/mcL Hgb 11.8 (11.5-15.4) g/dL Hct 37.2 (35.3-44.9) % Plt Count 229 (140-400) K/mcL Neutrophils # 6.3 (1.6-8.9) K/mcL BMP 09/28/18 12:32 Sodium 140 Potassium 3.9 Chloride 104 Carbon Dioxide 27 BUN 15 Creatinine 0.81 Glucose 262 H Calcium 9.0 Cardiac Enzymes 09/28/18 Range/Units 12:32 Troponin I < 0.03 (< 0.04) ng/mL Liver Function 09/28/18 Range/Units 12:32 Total Bilirubin 0.8 (0.3-1.0) mg/dL Direct Bilirubin 0.2 (0.0-0.2) mg/dL AST 19 (13-39) Units/L ALT 14 (7-52) Units/L Alkaline Phosphatase 131 H (34-104) Units/L Albumin 3.8 (3.5-5.7) g/dL Urine 09/28/18 Range/Units 12:49 Urine Color Yellow (Yellow) Urine Clarity Cloudy A (Clear) Urine pH 6.0 (5.0-8.0) pH Units Ur Specific [place] 1.010 (1.010-1.025) Urine Protein Negative (Neg-Trace) mg/dL Urine Glucose (UA) Normal (Normal) mg/dL - ABG Interpretation ABG results: 09/28/18 13:07 ABG pH 7.45 ABG pCO2 40 ABG pO2 88 ABG HCO3 28 H ABG Total CO2 29 H ABG O2 Saturation 97 ABG Base Excess 3 - Impressions ITS Impressions Chest CTA 09/28/18 12:18 IMPRESSION: Somewhat limited study due to respiratory motion. No evidence of central or proximal segmental pulmonary embolism. Enlarged main pulmonary artery suggesting pulmonary hypertension. Mosaic attenuation the lung suggesting areas of air trapping. Trace right pleural effusion. Coronary artery calcifications D/ / Kevin Crowley / Kevin Crowley Interpreting Provider: Kevin Crowley Head CT 09/28/18 12:19 IMPRESSION: No acute intracranial abnormality. Senescent changes including chronic microvascular change. Old lacunar infarcts. D/ / 09/28/2018 14:09:53 Eloisa Johns MD / benji Interpreting Provider: Eloisa Johns MD
[2018-09-28] MEDS: *HR* Digoxin 0.125 MG TABLET PO SCH (18:09)
[2018-09-28] MEDS: Isosorbide MONOnitrate (24 HR) 30 MG TAB.ER.24H PO SCH (18:09)
[2018-09-28] MEDS: hydrALAZINE 25 MG TABLET PO SCH (18:10)
[2018-09-28] MEDS ORDERED: *HR* Metoprolol 5 MG/5 ML VIAL IVP ONE (19:38)
[2018-09-28] MEDS ORDERED: *HR* Digoxin 0.5 MG/2 ML AMPUL IVP ONE (19:39)
[2018-09-28] MEDS: *HR* HYDROcodone/Acet 5/325 mg TABLET PO PRN (21:57)
[2018-09-28] MEDS: traZODone 50 MG TABLET PO SCH (21:58)
[2018-09-28] MEDS: (Methenamine Hippurate [Hiprex] 1 GM) PO SCH (21:58)
[2018-09-29] MEDS: hydrALAZINE 25 MG TABLET PO SCH ×3 (01:48→17:29)
[2018-09-29] MEDS ORDERED: *HR* Glimepiride 2 MG TABLET PO SCH (08:00)
[2018-09-29 08:15] LABS: Basophils % 0.4 %; Eosinophils # 0.3 K/mcL (0.0-0.6); Eosinophils % 4.6 %; Hematocrit 37.8 % (35.3-44.9); Immature Granulocytes % 0.6 % (0-4); Lymphocytes # 1.4 K/mcL (0.6-4.6); Lymphocytes % 19.6 %; Mean Corpuscular HGB Conc 31.7 g/dL (31.6-35.5); Mean Corpuscular Hemoglobin 30.1 pg (28.0-33.3); Mean Corpuscular Volume 94.7 fL (83.0-100.0); Mean Platelet Volume 10.1 fL (9.4-12.4); Monocytes # 0.6 K/mcL (0.0-1.3); Monocytes % 8.8 %; Neutrophils # 4.6 K/mcL (1.6-8.9); Platelet Count 273 K/mcL (140-400); Red Blood Count 3.99 M/mcL (3.82-4.97); Red Cell Distribution Width 15.8 % (11.5-14.5)
[2018-09-29] MEDS: Diltiazem CD (24hr) 180 MG CAPSULE PO SCH (08:44)
[2018-09-29] MEDS: Isosorbide MONOnitrate (24 HR) 30 MG TAB.ER.24H PO SCH (08:44)
[2018-09-29] MEDS: (Methenamine Hippurate [Hiprex] 1 GM) PO SCH ×2 (08:45→21:53)
[2018-09-29] MEDS: Furosemide 40 MG TABLET PO SCH (08:45)
[2018-09-29] MEDS: Aspirin 81 MG TAB.CHEW PO SCH (08:45)
[2018-09-29] MEDS: *HR* Digoxin 0.125 MG TABLET PO SCH (08:45)
[2018-09-29 08:56] LABS: Thyroid Stimulating Hormone 2.376 mcIU/mL (0.340-5.600)
[2018-09-29 10:13] LABS: BUN/Creatinine Ratio 17 (6-26); Blood Urea Nitrogen 14 mg/dL (8-23); Calcium 8.6 mg/dL (8.6-10.3); Carbon Dioxide 28 mEq/L (23-29); Chloride 107 mEq/L (98-107); Glucose 133 mg/dL (70-105); Osmolality,Calculated 296 (280-300); Potassium 4.1 mEq/L (3.5-5.1); Sodium 142 mEq/L (136-145); eGFR For Non-African Americans > 60 (> 60)
[2018-09-29 11:04] LABS: Magnesium 2.2 mg/dL (1.6-2.6)
[2018-09-29] MEDS: Insulin LISPRO 300 UNITS/3 ML VIAL SQ SCH ×3 (12:57→21:52)
[2018-09-29 13:48] LABS: Estimated Average Glucose 235 mg/dl; Hemoglobin A1C 9.8 %
--- NOTE | 2018-09-29 16:35 | Internal Med Progress Note ---
Date of Encounter: 09/29/18 Time of Encounter: 16:25 - Assessment and plan (1) CHF (congestive heart failure) Current Visit: Yes Status: Acute Assessment and plan: September 29. BN peptide minimally lower at 958. Continue lisinopril, Lanoxin, Imdur, metoprolol, and Lasix Qualifiers: Heart failure type: diastolic Heart failure chronicity: acute on chronic Qualified Code(s): I50.33 - Acute on chronic diastolic (congestive) heart failure (2) Hypertension Current Visit: No Status: Chronic Assessment and plan: September 29. Blood pressure improved. Continue metoprolol, diltiazem, and lisinopril Qualifiers: Hypertension type: essential hypertension Qualified Code(s): I10 - Essential (primary) hypertension (3) DM type 2 (diabetes mellitus, type 2) Current Visit: No Status: Chronic Assessment and plan: September 29. Hemoglobin A1c elevated at 9.8%. She has hypoglycemia at present time so Amaryl will be discontinued. Continue Accu-Cheks with SSI. Qualifiers: Diabetes mellitus intermediate insulin use: without intermediate use Diabetes mellitus complication status: with neurologic complications Diabetes mellitus complication detail: with unspecified neuropathy Qualified Code(s): E11.40 - Type 2 diabetes mellitus with diabetic neuropathy, unspecified (4) Atrial fibrillation Current Visit: No Status: Chronic Assessment and plan: September 29. She appears to be significant fall risk. Start aspirin 81 mg daily. Qualifiers: Atrial fibrillation type: paroxysmal Qualified Code(s): I48.0 - Paroxysmal atrial fibrillation (5) Hypothyroidism Current Visit: No Status: Chronic Assessment and plan: September 29. TSH was normal at 2.376. Continue present dose Synthroid Qualifiers: Hypothyroidism type: unspecified Qualified Code(s): E03.9 - Hypothyroidism, unspecified (6) B12 deficiency Current Visit: Yes Status: Acute Assessment and plan: September 29. B12 level > 1500. - Subjective Interval history: September 29. No new problems have arisen. - Constitutional Vitals: Temp Pulse Resp BP Pulse Ox 98.2 F 106 18 108/68 96 09/29/18 12:16 09/29/18 12:16 09/29/18 12:16 09/29/18 12:16 09/29/18 12:16 Exam: She is lying in bed and appears in no acute distress. Her blood sugar is 42 and she is being given orange juice etc. at this time. Heart is irregularly irregular at rate approximately 132/m. I reviewed her medications and lab res ults. Internal Medicine: Result - Labs CBC & Chem 7: 09/29/18 07:59 09/29/18 07:59 Labs: Short CBC 09/29/18 Range/Units 07:59 WBC 6.9 (4.3-11.1) K/mcL Hgb 12.0 (11.5-15.4) g/dL Hct 37.8 (35.3-44.9) % Plt Count 273 (140-400) K/mcL Neutrophils # 4.6 (1.6-8.9) K/mcL BMP 09/29/18 07:59 Sodium 142 Potassium 4.1 Chloride 107 Carbon Dioxide 28 BUN 14 Creatinine 0.84 Glucose 133 H Calcium 8.6 Cardiac Enzymes 09/28/18 09/29/18 09/29/18 Range/Units 18:43 00:53 07:59 Troponin I < 0.03 < 0.03 < 0.03 (< 0.04) ng/mL - ABG Interpretation ABG results: ABG ABG pH 7.45 pH Units (7.32-7.45) 09/28/18 13:07 ABG pCO2 40 mmHg (35-45) 09/28/18 13:07 ABG pO2 88 mmHg (85-104) 09/28/18 13:07 ABG O2 Saturation 97 % (95-98) 09/28/18 13:07 PT/INR, D-dimer PT 10.8 Seconds (9.4-12.1) 09/28/18 12:32 - Impressions Impressions Head CT 09/28/18 12:19 IMPRESSION: No acute intracranial abnormality. Senescent changes including chronic microvascular change. Old lacunar infarcts. D/ / 09/28/2018 14:09:53 Eloisa Johns MD / bcarter Interpreting Provider: Eloisa Johns MD Consult Discharge Plan - Plan Referrals: Raleigh Mcleod MD [Primary Care Provider] - 1 week
[2018-09-29] MEDS ORDERED: *HR* Dextrose 50 % in Water (Syg) 50 ML SYRINGE IVP PRN (16:49)
[2018-09-29] MEDS ORDERED: *HR* Dextrose 50 % in Water (Syg) 50 ML SYRINGE ONE (16:50)
[2018-09-29] MEDS: traZODone 50 MG TABLET PO SCH (21:58)
[2018-09-30] MEDS: hydrALAZINE 25 MG TABLET PO SCH ×3 (01:55→19:28)
[2018-09-30] MEDS: Insulin LISPRO 300 UNITS/3 ML VIAL SQ SCH ×4 (08:08→21:33)
--- NOTE | 2018-09-30 09:23 | Discharge Summary ---
Orders not resulted at time of discharge: Pending orders 09/28/18 13:05 Culture,Blood [BC] Stat Date of Encounter: 09/30/18 Time of Encounter: 09:12 - Discharge Diagnosis (1) CHF (congestive heart failure) Priority: Primary Status: Acute Qualifiers: Heart failure type: diastolic Heart failure chronicity: acute on chronic Qualified Code(s): I50.33 - Acute on chronic diastolic (congestive) heart failure (2) Hypertension Priority: Secondary Status: Chronic Qualifiers: Hypertension type: essential hypertension Qualified Code(s): I10 - Essential (primary) hypertension (3) DM type 2 (diabetes mellitus, type 2) Priority: Secondary Status: Chronic Qualifiers: Diabetes mellitus fdc insulin use: without intermediate accountant use Diabetes mellitus complication status: with neurologic complications Diabetes mellitus complication detail: with unspecified neuropathy Qualified Code(s): E11.40 - Type 2 diabetes mellitus with diabetic neuropathy, unspecified (4) Atrial fibrillation Priority: Secondary Status: Chronic Qualifiers: Atrial fibrillation type: paroxysmal Qualified Code(s): I48.0 - Paroxysmal atrial fibrillation (5) Hypothyroidism Priority: Secondary Status: Chronic Qualifiers: Hypothyroidism type: unspecified Qualified Code(s): E03.9 - Hypothyroidism, unspecified (6) B12 deficiency Priority: Secondary Status: Acute (7) Dementia Priority: Secondary Status: Chronic Qualifiers: Dementia type: unspecified type Dementia behavioral disturbance: without behavioral disturbance Qualified Code(s): F03.90 - Unspecified dementia without behavioral disturbance Hospital course: Ms. Murray is a 78 year old female who came to emergency room with reported dyspnea and altered mental status for 3 days. The ER note reports she was found running down the road yesterday and the hide buyer was called to assist. She has reportedly called the hide buyer at least twice in the past few days stating her family was not treating her well. She was evaluated in emergency room and was found to have significantly elevated BN peptide. She was admitted to [facility] floor for ongoing care needs. Initial orders were written by the emergency room physician. I saw her on September 28 and performed a history and physical. Metoprolol and Lasix were continued for heart failure. Lisinopril Lanoxin and Imdur were added. Her BUN peptide decreased slightly is 958 on September 29. She was not clinically dyspneic when I saw her on September 30. She will continue this regimen at discharge and will be monitored with labs and clinical assessment. Her blood pressure improved to satisfactory level with the addition of lisinopril and Imdur. These will be continued at discharge. Hemoglobin A1c returned elevated at 9.8%. Blood sugar showed significant fluctuation during hospitalization. She will remain off glimepiride at discharge due to periodic hypoglycemia. Accu-Cheks with SSI will be done at the SNF. She was started on low-dose aspirin for atrial fibrillation. Anticoagulation was not given because of significant fall risk. TSH returned normal at 2.376. Synthroid dose will be continued at present level. B12 level returned significantly elevated at > 1500. MMSE exam showed score 09/14. After discussion with family was agreed patient should be admitted to a locked [place] environment for her own safety. [facility] ents were complete for to be discharged to [facility] on October 01. - Time Spent with Patient Total time spent providing and/or coordinating discharge services: - Discharge Medications Home Medications: DULoxetine [Cymbalta] 60 mg PO DAILY 08/17/18 [History] Furosemide [Lasix] 40 mg PO DAILY 08/17/18 [History] Glimepiride [Amaryl] 2 mg PO 0800 08/17/18 [History] Levothyroxine [Synthroid] 75 mcg PO DAILY 08/17/18 [History] Methenamine Hippurate [Hiprex] 1 gm PO BID 08/17/18 [History] Metoprolol Tartrate 100 mg PO BID 08/17/18 [History] Potassium Chloride [Klor-Con 10] 20 meq PO DAILY 08/17/18 [History] dilTIAZem HCl [Diltiazem ER] 360 mg PO DAILY 08/17/18 [History] traZODone [TraZODone] 50 mg PO HS 08/17/18 [History] Aspirin 81 mg PO Q48H tab.chew 09/30/18 [Rx] Digoxin [Lanoxin] 0.125 mg PO DAILY tablet 09/30/18 [Rx] Isosorbide MONOnitrate (24 HR) [Imdur] 30 mg PO DAILY tab.er.24h 09/30/18 [Rx] Lisinopril [Zestril] 10 mg PO DAILY tablet 09/30/18 [Rx] MOM Conc [MILK OF MAGNESIA conc] 10 ml PO DAILY PRN ud.liq 09/30/18 [Rx] hydrALAZINE [HydrALAZINE] 100 mg PO Q8H #0 09/30/18 [Rx] Allergies/Adverse Reactions: Allergy/AdvReac Type Severity Reaction Status Date / Time No Known Allergies Allergy Verified 01/19/18 17:16 Date of admission: 09/28/18 17:21 Primary care physician: Raleigh Mcleod MD Consults: 09/28/18 15:47 Consult to Lamination Operator [CONS] Routine Reason for SW Consult: family wants ECF placement 09/28/18 17:20 Consult to Occupational Therapy [CONS] Routine Comment: Evaluate, develop and implement POC Reason for Consult: Weakness, heart failure, history of falls Does patient have active BEDREST order?: No Is patient medically & hemodynamically stable?: Yes Patient assessed for mobility or mobilized this visit?: Yes Consult to Physical Therapy [CONS] Routine Comment: Evaluate, develop and implement POC Reason for Consult: Weakness, heart failure, history of falls Does patient have active BEDREST order?: No Is patient medically & hemodynamically stable?: Yes Patient assessed for mobility or mobilized this visit?: Yes - Constitutional Vitals: Temp Pulse Resp BP Pulse Ox 98.1 F 98 16 155/84 94 09/30/18 06:37 09/30/18 06:37 09/30/18 06:37 09/30/18 06:37 09/30/18 06:37 - Patient Status Disposition: Transfer SNF Condition: Fair - Discharge Instructions - Diet and Activity Activity: as per physical therapy Diet: diabetic diet
--- NOTE | 2018-09-30 09:33 | Physician Discharge Referral ---
ExtendedCare Referral Info Transfer To: [facility] Provider in Charge: Dov Provider in Charge after Transfer: PCP (Dov) - Diagnosis (1) CHF (congestive heart failure) Priority: Primary Status: Acute (2) Hypertension Priority: Secondary Status: Chronic (3) DM type 2 (diabetes mellitus, type 2) Priority: Secondary Status: Chronic (4) Atrial fibrillation Priority: Secondary Status: Chronic (5) Hypothyroidism Priority: Secondary Status: Chronic (6) B12 deficiency Priority: Secondary Status: Acute (7) Dementia Priority: Secondary Status: Chronic - Transfer Medications Home Medications: DULoxetine [Cymbalta] 60 mg PO DAILY 08/17/18 [History] Furosemide [Lasix] 40 mg PO DAILY 08/17/18 [History] Glimepiride [Amaryl] 2 mg PO 0800 08/17/18 [History] Levothyroxine [Synthroid] 75 mcg PO DAILY 08/17/18 [History] Methenamine Hippurate [Hiprex] 1 gm PO BID 08/17/18 [History] Metoprolol Tartrate 100 mg PO BID 08/17/18 [History] Potassium Chloride [Klor-Con 10] 20 meq PO DAILY 08/17/18 [History] dilTIAZem HCl [Diltiazem ER] 360 mg PO DAILY 08/17/18 [History] traZODone [TraZODone] 50 mg PO HS 08/17/18 [History] Aspirin 81 mg PO Q48H tab.chew 09/30/18 [Rx] Digoxin [Lanoxin] 0.125 mg PO DAILY tablet 09/30/18 [Rx] Isosorbide MONOnitrate (24 HR) [Imdur] 30 mg PO DAILY tab.er.24h 09/30/18 [Rx] Lisinopril [Zestril] 10 mg PO DAILY tablet 09/30/18 [Rx] MOM Conc [MILK OF MAGNESIA conc] 10 ml PO DAILY PRN ud.liq 09/30/18 [Rx] hydrALAZINE [HydrALAZINE] 100 mg PO Q8H #0 09/30/18 [Rx] Allergies/Adverse Reactions: Allergy/AdvReac Type Severity Reaction Status Date / Time No Known Allergies Allergy Verified 01/19/18 17:16 - Respiratory Orders Smoking Cessation: Smoking cessation has been advised. For more information, call the [place] Tobacco Quit Line at 9-989-WHER-NOW. - Lab Orders Lab Orders: Other (include drug levels w/frequency) (CBC with differential, BMP, BNP peptide, magnesium level, digoxin level in 1 week and every 3 months. Hemoglobin A1c and TSH every 3 months.) - Mobility Orders Ambulate - Rehabiliation Orders Rehab Potential: Poor Rehab Orders: Evaluation for Physical Therapy, Evaluation for Occupational Th erapy - Diet Orders No Concentrated Sweets CERTIFICATION: I certify that the transfer of the above named patient to an Extended Care Facility is necessary for the continuing treatment of the diagnosis listed. The above information is true and accurate reflection of patient's current condition. Confidential - Redisclosure prohibited without a patient's written consent.
[2018-09-30] MEDS: Isosorbide MONOnitrate (24 HR) 30 MG TAB.ER.24H PO SCH (11:35)
[2018-09-30] MEDS: Diltiazem CD (24hr) 180 MG CAPSULE PO SCH (11:35)
[2018-09-30] MEDS: Aspirin 81 MG TAB.CHEW PO SCH (11:35)
[2018-09-30] MEDS: Furosemide 40 MG TABLET PO SCH (11:36)
[2018-09-30] MEDS: *HR* Digoxin 0.125 MG TABLET PO SCH (11:36)
[2018-09-30] MEDS: (Methenamine Hippurate [Hiprex] 1 GM) PO SCH ×2 (11:36→21:19)
[2018-09-30] MEDS: traZODone 50 MG TABLET PO SCH (21:18)
[2018-10-01] MEDS: hydrALAZINE 25 MG TABLET PO SCH ×2 (01:54→09:51)
[2018-10-01 03:58] VITALS: BP 119/77
[2018-10-01] MEDS: Aspirin 81 MG TAB.CHEW PO SCH (09:51)
[2018-10-01] MEDS: *HR* Digoxin 0.125 MG TABLET PO SCH (09:51)
[2018-10-01] MEDS: Diltiazem CD (24hr) 180 MG CAPSULE PO SCH (09:51)
[2018-10-01] MEDS: Isosorbide MONOnitrate (24 HR) 30 MG TAB.ER.24H PO SCH (09:51)
[2018-10-01] MEDS: Furosemide 40 MG TABLET PO SCH (09:52)
[2018-10-01] MEDS: (Methenamine Hippurate [Hiprex] 1 GM) PO SCH (09:52)
[2018-10-01] MEDS: Insulin LISPRO 300 UNITS/3 ML VIAL SQ SCH ×2 (09:54→13:07)
[2018-10-01] MEDS: *HR* HYDROcodone/Acet 5/325 mg TABLET PO PRN (10:05)
== END 2018-10-01 15:24 | DRG 292 ==
LOC: EMEROOPIK 12:03 → INPPIK 12:03
PROVIDERS: ADMIT Internal Medicine; ATTEND Internal Medicine

== ENCOUNTER 2019-03-12 22:41 | Inpatient (IN) ==
[2019-03-12] MEDS ORDERED: 0.9 % Sodium Chloride 1,000 ML IVC ONE (23:03)
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
[2019-03-12 23:18] LABS: Bilirubin,Urine Negative (Negative); Blood,Urine Negative (Negative); Clarity,Urine Slightly Cloudy (Clear); Color,Urine Yellow (Yellow); Glucose,Urine (UA) Normal (Normal); Ketones,Urine Negative (Negative); Leukocyte Esterase,Urine Negative (Negative); Nitrite,Urine Negative (Negative); PH,Urine 5.5 pH Units (5.0-8.0); Protein,Urine 30 mg/dL (Neg-Trace); Urobilinogen,Urine Normal (Normal)
[2019-03-12 23:28] LABS: Hyaline Casts,Urine Many per lpf (None-Few); Squamous Epithelial Cell,Urine Few per lpf (None-Few)
[2019-03-12 23:29] LABS: Bacteria,Urine Moderate per hpf (None-Few); Mucus,Urine Moderate (Few); RBC,Urine 0-3 per hpf (0-3); Uric Acid Crystals,Urine Present; WBC,Urine 0-3 per hpf (0-3)
[2019-03-12 23:30] LABS: Renal Epithelial Cells,Urine Few per hpf (None-Few)
[2019-03-12 23:41] LABS: Basophils % 0.4 %; Eosinophils # 0.2 K/mcL (0.0-0.6); Eosinophils % 2.1 %; Hematocrit 38.5 % (35.3-44.9); Hemoglobin 12.2 g/dL (11.5-15.4); Immature Granulocytes % 0.2 % (0-4); Lymphocytes # 1.1 K/mcL (0.6-4.6); Mean Corpuscular HGB Conc 31.7 g/dL (31.6-35.5); Mean Corpuscular Hemoglobin 28.2 pg (28.0-33.3); Mean Corpuscular Volume 89.1 fL (83.0-100.0); Mean Platelet Volume 10.9 fL (9.4-12.4); Monocytes # 0.8 K/mcL (0.0-1.3); Monocytes % 9.9 %; Neutrophils # 6.1 K/mcL (1.6-8.9); Platelet Count 218 K/mcL (140-400); Red Blood Count 4.32 M/mcL (3.82-4.97); Red Cell Distribution Width 14.1 % (11.5-14.5); Segmented Neutrophils % 74.4 %; White Blood Count 8.2 K/mcL (4.3-11.1)
[2019-03-12 23:50] LABS: INR 0.9; Prothrombin Time 10.5 Seconds (9.4-12.1)
[2019-03-12 23:53] LABS: Activated Partial Thrombo Time 30.3 Seconds (26.0-36.0)
[2019-03-13 00:01] LABS: Troponin I < 0.03 ng/mL (< 0.04)
[2019-03-13 00:02] LABS: Alanine Aminotransferase 26 Units/L (7-52); Albumin/Globulin Ratio 1.2 (1.1-2.2); Alkaline Phosphatase 103 Units/L (34-104); Aspartate Amino Transferase 38 Units/L (13-39); BUN/Creatinine Ratio 29 (6-26); Bilirubin,Direct 0.1 mg/dL (0.0-0.2); Bilirubin,Indirect 0.2 mg/dL (0.0-1.2); Bilirubin,Total 0.3 mg/dL (0.3-1.0); Blood Urea Nitrogen 30 mg/dL (8-23); Calcium 7.6 mg/dL (8.6-10.3); Carbon Dioxide 23 mEq/L (23-29); Chloride 109 mEq/L (98-107); Globulin 2.5 g/dL (2.4-3.5); Glucose 202 mg/dL (70-105); Magnesium 2.1 mg/dL (1.6-2.6); Osmolality,Calculated 300 (280-300); Phosphorous 3.7 mg/dL (2.7-4.5); Potassium 3.6 mEq/L (3.5-5.1); Sodium 139 mEq/L (136-145); Total Protein 5.5 g/dL (6.4-8.9); eGFR For African Americans > 60 (> 60); eGFR For Non-African Americans 51 (> 60)
[2019-03-13] MEDS ORDERED: cefTRIAXone 1,000 MG in Water for inj. (sterile) 10 ML IVP ONE (00:11)
[2019-03-13] MEDS ORDERED: Naloxone 0.4 MG/ML INJ IVP PRN ×2 (01:39→01:55)
[2019-03-13] MEDS ORDERED: 0.9 % Sodium Chloride 1,000 ML IVC SCH (01:45)
[2019-03-13] MEDS: 0.9 % Sodium Chloride 1,000 ML IVC SCH ×2 (02:30→14:08)
[2019-03-13] MEDS ORDERED: Diltiazem CD (24hr) 180 MG CAPSULE PO SCH (09:00)
[2019-03-13] MEDS ORDERED: dilTIAZem HCl 60 MG TABLET PO SCH (09:15)
[2019-03-13] MEDS: Cyanocobalamin (B-12) 1,000 MCG TABLET PO SCH (10:28)
[2019-03-13] MEDS: Methenamine Hippurate [Hiprex] 1 GM PO SCH ×2 (10:28→21:06)
[2019-03-13] MEDS: Aspirin 81 MG TAB.CHEW PO SCH (10:28)
[2019-03-13] MEDS: *HR* Glimepiride 2 MG TABLET PO SCH (10:28)
[2019-03-13] MEDS: Furosemide 40 MG TABLET PO SCH (10:28)
--- NOTE | 2019-03-13 12:06 | Internal Med History&Physical ---
Date of Encounter: 03/13/19 Time of Encounter: 11:10 Assessment and Plan (1) Pneumonia Current visit: Yes Status: Acute Chest x-ray showed patchy perihilar airspace disease. She was given Rocephin in emergency room. This will be continued and Zithromax and lactobacillus will be added. Qualifiers: Pneumonia type: due to unspecified organism Laterality: unspecified laterality Lung location: unspecified part of lung Qualified Code(s): J18.9 - Pneumonia, unspecified organism (2) Hypotension Current visit: Yes Status: Acute Possibly secondary to volume depletion and use of metoprolol and Cardizem. IV fluids have been ordered. Antihypertensive medication will be held and blood pressure monitored. Qualifiers: Hypotension type: hypotension due to hypovolemia Qualified Code(s): I95.89 - Other hypotension; E86.1 - Hypovolemia (3) Dehydration Current visit: Yes Status: Acute BUN and creatinine were 30 and 1.05 respectively in emergency room with estimated GFR 51. She will be given gentle IV fluids. (4) Acute renal insufficiency Current visit: Yes Status: Acute As above (5) DM type 2 (diabetes mellitus, type 2) Current visit: No Status: Chronic Hemoglobin A1c was 9.8% on 09/29/2018. Recheck in a.m. Qualifiers: Diabetes mellitus fpc insulin use: without intermodal truck driver use Diabetes mellitus complication status: with neurologic complications Diabetes mellitus complication detail: with unspecified neuropathy Qualified Code(s): E11.40 - Type 2 diabetes mellitus with diabetic neuropathy, unspecified (6) Atrial fibrillation Current visit: No Status: Chronic Continue aspirin 81 mg daily. She is considered significant fall risk and does not use OAC. Qualifiers: Atrial fibrillation type: paroxysmal Qualified Code(s): I48.0 - Paroxysmal atrial fibrillation (7) Hypothyroidism Current visit: No Status: Chronic Check TSH in a.m. Qualifiers: Hypothyroidism type: unspecified Qualified Code(s): E03.9 - Hypothyroidism, unspecified (8) CHF (congestive heart failure) Current visit: No Status: Acute BN peptide was 674 on admission. This was improved from previous level 10/18/2018 of 975. Continue present Rx. Qualifiers: Heart failure type: diastolic Heart failure chronicity: acute on chronic Qualified Code(s): I50.33 - Acute on chronic diastolic (congestive) heart f ailure (9) Dementia Current visit: No Status: Chronic MMSE during her September 2018 [facility] hospitalization scored 09/14. Repeat MMSE will be done today for comparison. Qualifiers: Dementia type: unspecified type Dementia behavioral disturbance: without behavioral disturbance Qualified Code(s): F03.90 - Unspecified dementia without behavioral disturbance (10) B12 deficiency Current visit: No Status: Acute Check B12 level in a.m. Internal Medicine - H&P: HPI Chief complaint: Unresponsiveness, confusion, hypotension Admitted From: Emergency Dept History of present illness: Ms. Murray is a 78 year old female who was brought to emergency room after daughter reported she had an episode of unresponsiveness while eating supper. The daughter states the patient fell back and her chair, not responding to voice or light touch. EMS was called and was able to arouse her somewhat. Patient was found to have hypotension with initial blood pressure 70/40. She was started on IV fluids. There was acute renal failure present on labs in emergency room. Chest x-ray showed possible pneumonia. She was admitted to [facility] floor for ongoing care needs. The patient denies dyspnea at the present time. She states she is having pain in her low back but denies other pain. She is a challenging historian due to extreme hearing loss and dementia. She reports being a lifelong nonsmoker and having no known chronic lung disease. She has had pneumonia in the past. Past Med Surg Social Fam HX - Past Medical History Medical history: arthritis, asthma, atrial fibrillation, CVA, dementia, diabetes, hyperlipidemia, hypertension, osteoporosis, thyroid disease, other Additional medical history: shingles. bells palsy. stroke age 34 Psychiatric history: depression - Past Surgical History Surgical History: hysterectomy, orthopedic, other, other Additional surgical history: Bilateral ankle fractures, right elbow fracture in 5 places, gastric bypass - Social History Smoking Status: Never smoker Smokeless Tobacco Status: No Alcohol use: none Drug use: none - Family History Father Living Status: Hx Family Cardiac Disorders: Yes Mother Living Status: Internal Medicine - H&P: Meds Aspirin 81 mg PO DAILY 12/02/18 [History] Trazodone HCl 50 - 100 mg PO HS PRN 12/02/18 [History] Furosemide [Lasix] 40 mg PO DAILY #7 tablet 12/09/18 [Rx] Glimepiride [Amaryl] 2 mg PO 0800 #7 tablet 12/09/18 [Rx] Levothyroxine [Synthroid] 75 mcg PO DAILY #7 tablet 12/09/18 [Rx] Methenamine Hippurate [Hiprex] 1 gm PO BID #14 tablet 12/09/18 [Rx] Metoprolol Tartrate 100 mg PO BID #14 tablet 12/09/18 [Rx] hydrALAZINE [HydrALAZINE] 100 mg PO TID #84 tablet 12/09/18 [Rx] Cyanocobalamin (Vitamin B-12) [Vitamin B12] 1,000 mcg PO DAILY 03/12/19 [History] Gabapentin [Neurontin] 300 mg PO HS 03/12/19 [History] Potassium Chloride [Klor-Con 10] 20 meq PO DAILY 03/12/19 [History] Cardizem 120 mg PO TID 03/13/19 [History] Allergy/AdvReac Type Severity Reaction Status Date / Time No Known Allergies Allergy Verified 01/19/18 17:16 All Systems PM: A 10-system review of systems was performed and is negative for pertinent findings except as documented above in the HPI. Review of systems: Review of systems from her September 2018 [facility] hospitalization were reviewed and revised as below. Gen.: Her weight has been stable at approximately 62-64 kg since the January 2018 [facility] hospitalization Cardiovascular: She has history of hypertension and atrial fibrillation. Echocardiogram 01/20/2018 showed LVEF of 55%. Interventricular septum and posterior wall thickness measurements were 1.40 cm each. Diastolic function could not be easily assessed because of atrial fibrillation. There was LAE at 4.10 cm. Mild tricuspid regurgitation and mild pulmonary hypertension was noted although estimated RVSP was not recorded. She denies known DVT or pulmonary em bolus. She is uncertain if she has had [place]. 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 She claims she had CVA in the past but does not recall details. She denies seizures. Endocrine: She states she has been diagnosed with DM 2 for several years. 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 She was felt to have capacity to make the decision to return home and denied any SI as was reported from family. [place] skeletal: She had a closed sacral fracture with hospitalization but treated nonoperatively April 2017. She denies arthritis gout or other bone joint or muscle disorders. - Constitutional Vitals: Temp Pulse Resp BP Pulse Ox 98.0 F 103 18 122/75 93 03/13/19 11:19 03/13/19 11:19 03/13/19 11:19 03/13/19 11:19 03/13/19 11:19 Exam: Gen.: She is a well-developed well-nourished female lying in bed who appears in no severe distress HEENT: Head is atraumatic and normocephalic. Eyes: EOMI. There is no scleral icterus. Mouth: Mucosa is moist. Neck: There is no thyromegaly or adenopathy noted. Heart: Irregularly irregular without murmurs or gallops Lungs: No wheezes or crackles are heard. Abdomen: Soft and nontender. No masses or guarding are noted. Extremities: There is no cyanosis edema or clubbing noted. Dorsalis pedis and posterior tibial pulses are trace palpable bilaterally. Neurologic: Mental status: She is very hard of hearing. She answers simple questions with appropriate answers. Cranial nerves: Smile is symmetric. Forehead wrinkles bilaterally. Tongue protrudes midline. EOMI. She has right eye esotropia. Motor: There is no pronator drift. Cerebellar: Finger to nose is intact bilaterally. Skin: Warm and dry Internal Med - H&P Results - Labs CBC & Chem 7: 03/12/19 23:26 03/12/19 23:26 Labs: Short CBC 03/12/19 Range/Units 23:26 WBC 8.2 (4.3-11.1) K/mcL Hgb 12.2 (11.5-15.4) g/dL Hct 38.5 (35.3-44.9) % Plt Count 218 (140-400) K/mcL Neutrophils # 6.1 (1.6-8.9) K/mcL BMP 03/12/19 23:26 Sodium 139 Potassium 3.6 Chloride 109 H Carbon Dioxide 23 BUN 30 H Creatinine 1.05 Glucose 202 H Calcium 7.6 L Cardiac Enzymes 03/12/19 Range/Units 23:26 Troponin I < 0.03 (< 0.04) ng/mL Liver Function 03/12/19 Range/Units 23:26 Total Bilirubin 0.3 (0.3-1.0) mg/dL Direct Bilirubin 0.1 (0.0-0.2) mg/dL AST 38 (13-39) Units/L ALT 26 (7-52) Units/L Alkaline Phosphatase 103 (34-104) Units/L Albumin 3.0 L (3.5-5.7) g/dL Urine 03/12/19 Range/Units 23:17 Urine Color Yellow (Yellow) Urine Clarity Slightly Cloudy A (Clear) Urine pH 5.5 (5.0-8.0) pH Units Ur Specific [place] 1.020 (1.010-1.025) Urine Protein 30 H (Neg-Trace) mg/dL Urine Glucose (UA) Normal (Normal) mg/dL - Impressions ITS Impressions Chest X-Ray 03/12/19 23:04 IMPRESSION: Patchy perihilar airspace disease may represent edema or pneumonia. Continued follow-up is advised. D/ / Jason Ramirez / Jason Ramirez Interpreting Provider: Jason Ramirez Head CT 03/13/19 00:09 IMPRESSION: No acute intracranial abnormality. Moderate cerebral atrophy appropriate for age. Moderate chronic ischemic changes also age-appropriate. No significant change from the prior study. D/ / Mirza Valentine MD / Mirza Valentine MD Interpreting Provider: Mirza Valentine MD - VTE Reasons for not Prescribing Prophylaxis: Treatment not Indicated - Low risk for VTE
[2019-03-13] MEDS: 0.45 % Sodium Chloride w/KCl 20 MEQ/1,000 ML MLS IVC SCH (13:56)
[2019-03-13] MEDS: Azithromycin 500 MG in D5% in Water 250 ML IVPB SCH (13:56)
--- NOTE | 2019-03-13 16:43 | Electrocardiograph Report ---
[place] [id number] Test Date: 2019-03-12 Pat Name: Valerie Murray Department: EDP-14 Room: [facility] Gender: F Cabinetmaker Helper: : 1940 Requested By: Constance Jason Order Number: [id number] Reading MD: Caesar Richardson Measurements Intervals [place] Rate: 64 P: GA: QRS: 76 QRSD: 132 T: 268 QT: 473 QTc: 489 Interpretive Statements Atrial fibrillation Right bundle branch block LVH with secondary repolarization abnormality Electronically Signed On 03-13-2019 16:41:22 EDT by Caesar Richardson
[2019-03-13] MEDS: Gabapentin 300 MG CAPSULE PO SCH (21:05)
[2019-03-13] MEDS: Lactobacillus 1 EACH CAP.SPRINK PO SCH (21:05)
[2019-03-13] MEDS: traZODone 50 MG TABLET PO PRN (21:05)
[2019-03-14] MEDS: cefTRIAXone 1,000 MG in Water for inj. (sterile) 10 ML IVP SCH (01:04)
[2019-03-14] MEDS: 0.45 % Sodium Chloride w/KCl 20 MEQ/1,000 ML MLS IVC SCH (01:19)
[2019-03-14] MEDS: *HR* Enoxaparin 40 MG/0.4 ML SYRINGE SQ SCH (06:25)
[2019-03-14 07:24] LABS: Basophils % 0.8 %; Eosinophils # 0.3 K/mcL (0.0-0.6); Eosinophils % 5.9 %; Hematocrit 37.8 % (35.3-44.9); Immature Granulocytes % 0.4 % (0-4); Lymphocytes # 1.7 K/mcL (0.6-4.6); Lymphocytes % 35.7 %; Mean Corpuscular HGB Conc 31.7 g/dL (31.6-35.5); Mean Corpuscular Hemoglobin 28.2 pg (28.0-33.3); Mean Corpuscular Volume 88.9 fL (83.0-100.0); Mean Platelet Volume 10.3 fL (9.4-12.4); Monocytes # 0.6 K/mcL (0.0-1.3); Monocytes % 12.5 %; Neutrophils # 2.1 K/mcL (1.6-8.9); Platelet Count 205 K/mcL (140-400); Red Blood Count 4.25 M/mcL (3.82-4.97); Red Cell Distribution Width 13.8 % (11.5-14.5); Segmented Neutrophils % 44.7 %; White Blood Count 4.7 K/mcL (4.3-11.1)
[2019-03-14 08:42] LABS: BUN/Creatinine Ratio 21 (6-26); Blood Urea Nitrogen 18 mg/dL (8-23); Calcium 8.4 mg/dL (8.6-10.3); Carbon Dioxide 25 mEq/L (23-29); Chloride 111 mEq/L (98-107); Glucose 88 mg/dL (70-105); Osmolality,Calculated 295 (280-300); Potassium 4.3 mEq/L (3.5-5.1); Sodium 142 mEq/L (136-145); eGFR For African Americans > 60 (> 60); eGFR For Non-African Americans > 60 (> 60)
[2019-03-14] MEDS ORDERED: *HR* Metoprolol 5 MG/5 ML VIAL IVP ONE (09:06)
[2019-03-14] MEDS ORDERED: *HR* Digoxin 0.5 MG/2 ML AMPUL IVP ONE (09:06)
[2019-03-14 09:15] LABS: Estimated Average Glucose 194 mg/dl
[2019-03-14] MEDS: Cyanocobalamin (B-12) 1,000 MCG TABLET PO SCH (09:31)
[2019-03-14] MEDS: Aspirin 81 MG TAB.CHEW PO SCH (09:31)
[2019-03-14] MEDS: Lactobacillus 1 EACH CAP.SPRINK PO SCH ×2 (09:31→20:48)
[2019-03-14] MEDS: Furosemide 40 MG TABLET PO SCH (09:31)
[2019-03-14] MEDS: *HR* Glimepiride 2 MG TABLET PO SCH (09:31)
[2019-03-14] MEDS: Methenamine Hippurate [Hiprex] 1 GM PO SCH ×2 (09:32→20:48)
[2019-03-14] MEDS: Azithromycin 500 MG in D5% in Water 250 ML IVPB SCH (13:09)
--- NOTE | 2019-03-14 15:38 | Internal Med Progress Note ---
Date of Encounter: 03/14/19 Time of Encounter: 15:30 - Assessment and plan (1) Pneumonia Current Visit: Yes Status: Acute Assessment and plan: March 14. Continue IV Rocephin, Zithromax, and lactobacillus. Qualifiers: Pneumonia type: due to unspecified organism Laterality: unspecified laterality Lung location: unspecified part of lung Qualified Code(s): J18.9 - Pneumonia, unspecified organism (2) Hypotension Current Visit: Yes Status: Acute Assessment and plan: March 14. Resolved. She is now hypertensive. Restart metoprolol but at lower dose of 50 mg twice a day. Restart Cardizem CD at lower dose of 120 mg daily. Qualifiers: Hypotension type: hypotension due to hypovolemia Qualified Code(s): I95.89 - Other hypotension; E86.1 - Hypovolemia (3) Dehydration Current Visit: Yes Status: Acute Assessment and plan: March 14. Resolved. BUN and creatinine are normal at 18 and 0.7 respectively with estimated GFR > 60. (4) Acute renal insufficiency Current Visit: Yes Status: Acute Assessment and plan: March 14. As above (5) DM type 2 (diabetes mellitus, type 2) Current Visit: No Status: Chronic Assessment and plan: March 14. Hemoglobin A1c decreased from 9.8% on 09/29/2018 but still elevated at 8.4%. Accu-Cheks are acceptable. Continue Amaryl Qualifiers: Diabetes mellitus group home insulin use: without group home use Diabetes mellitus complication status: with neurologic complications Diabetes mellitus complication detail: with unspecified neuropathy Qualified Code(s): E11.40 - Type 2 diabetes mellitus with diabetic neuropathy, unspecified (6) Atrial fibrillation Current Visit: No Status: Chronic Assessment and plan: March 14. Restart metoprolol and Cardizem for rate control. Continue aspirin 81 mg daily. Qualifiers: Atrial fibrillation type: paroxysmal Qualified Code(s): I48.0 - Paroxysmal atrial fibrillation (7) Hypothyroidism Current Visit: No Status: Chronic Assessment and plan: March 14. TSH was slightly suppressed at 0.23. Hold Synthroid. Qualifiers: Hypothyroidism type: unspecified Qualified Code(s): E03.9 - Hypothyroidism, unspecified (8) CHF (congestive heart failure) Current Visit: No Status: Acute Assessment and plan: March 14. BN peptide has risen to 1293. She is asymptomatic. Continue Lasix. Restart metoprolol. Qualifiers: Heart failure type: diastolic Heart failure chronicity: acute on chronic Qualified Code(s): I50.33 - Acute on chronic diastolic (congestive) heart failure (9) Dementia Current Visit: No Status: Chronic Assessment and plan: March 14. Repeat MMSE score was 22/30. I suspect the previous testing with score of 30 was due in part to hearing loss. She is appropriate in conversation but hard of hearing. Qualifiers: Dementia type: unspecified type Dementia behavioral disturbance: without behavioral disturbance Qualified Code(s): F03.90 - Unspecified dementia without behavioral disturbance (10) B12 deficiency Current Visit: No Status: Acute Assessment and plan: March 14. B12 level> 1500. Discontinue supplemental vitamin B12 - Subjective Interval history: March 14. She has no new complaints. - Constitutional Vitals: Temp Pulse Resp BP Pulse Ox 98.2 F 91 16 187/92 97 03/14/19 15:21 03/14/19 15:21 03/14/19 15:21 03/14/19 15:21 03/14/19 15:21 Exam: She is sitting in a chair at bedside resting comfortably. Her affect is overall cheerful. She is appropriate in conversation. Heart is irregularly irregular with rate approximately 96/m. Lungs are clear. Externally show no pitting edema. I reviewed her medications and lab results. Internal Medicine: Result - Labs CBC & Chem 7: 03/14/19 07:06 03/14/19 07:06 Labs: Short CBC 03/14/19 Range/Units 07:06 WBC 4.7 (4.3-11.1) K/mcL Hgb 12.0 (11.5-15.4) g/dL Hct 37.8 (35.3-44.9) % Plt Count 205 (140-400) K/mcL Neutrophils # 2.1 (1.6-8.9) K/mcL BMP 03/14/19 07:06 Sodium 142 Potassium 4.3 Chloride 111 H Carbon Dioxide 25 BUN 18 Creatinine 0.87 Glucose 88 Calcium 8.4 L - ABG Interpretation ABG results: PT/INR, D-dimer PT 10.5 Seconds (9.4-12.1) 03/12/19 23:26 - VTE Reasons for not Prescribing Prophylaxis: Treatment not Indicated - Low risk for VTE Consult Discharge Plan - Plan Referrals: Raleigh Mcleod MD [Primary Care Provider] - 1 week
[2019-03-14] MEDS: Diltiazem CD (24hr) 120 MG CAPSULE PO SCH (16:43)
[2019-03-14] MEDS: ALPRAZolam 0.25 MG TABLET PO PRN (20:47)
[2019-03-14] MEDS: Gabapentin 300 MG CAPSULE PO SCH (20:48)
[2019-03-14] MEDS: traZODone 50 MG TABLET PO PRN (20:48)
[2019-03-15] MEDS: cefTRIAXone 1,000 MG in Water for inj. (sterile) 10 ML IVP SCH (00:57)
[2019-03-15] MEDS: *HR* Enoxaparin 40 MG/0.4 ML SYRINGE SQ SCH (06:46)
[2019-03-15] MEDS: Diltiazem CD (24hr) 120 MG CAPSULE PO SCH (08:58)
[2019-03-15] MEDS: Methenamine Hippurate [Hiprex] 1 GM PO SCH ×2 (08:58→21:44)
[2019-03-15] MEDS: Aspirin 81 MG TAB.CHEW PO SCH (08:58)
[2019-03-15] MEDS: Lactobacillus 1 EACH CAP.SPRINK PO SCH ×2 (08:58→21:44)
[2019-03-15] MEDS: Furosemide 40 MG TABLET PO SCH (08:58)
[2019-03-15] MEDS: *HR* Glimepiride 2 MG TABLET PO SCH (08:58)
[2019-03-15] MEDS: Azithromycin 500 MG in D5% in Water 250 ML IVPB SCH (13:22)
--- NOTE | 2019-03-15 14:19 | Internal Med Progress Note ---
Date of Encounter: 03/15/19 Time of Encounter: 14:10 - Assessment and plan (1) Pneumonia Current Visit: Yes Status: Acute Assessment and plan: March 14. Continue IV Rocephin, Zithromax, and lactobacillus. Qualifiers: Pneumonia type: due to unspecified organism Laterality: unspecified laterality Lung location: unspecified part of lung Qualified Code(s): J18.9 - Pneumonia, unspecified organism (2) Hypotension Current Visit: Yes Status: Acute Assessment and plan: March 14. Resolved. She is now hypertensive. Restart metoprolol but at lower dose of 50 mg twice a day. Restart Cardizem CD at lower dose of 120 mg daily. March 15. Blood pressure remains above desirable level. Increase metoprolol to 100 mg twice daily and continue Cardizem CD 120 mg daily. Qualifiers: Hypotension type: hypotension due to hypovolemia Qualified Code(s): I95.89 - Other hypotension; E86.1 - Hypovolemia (3) Dehydration Current Visit: Yes Status: Acute Assessment and plan: March 14. Resolved. BUN and creatinine are normal at 18 and 0.7 respectively with estimated GFR > 60. (4) Acute renal insufficiency Current Visit: Yes Status: Acute Assessment and plan: March 14. As above (5) DM type 2 (diabetes mellitus, type 2) Current Visit: No Status: Chronic Assessment and plan: March 14. Hemoglobin A1c decreased from 9.8% on 09/29/2018 but still elevated at 8.4%. Accu-Cheks are acceptable. Continue Amaryl Qualifiers: Diabetes mellitus exterminator termite insulin use: without prison use Diabetes mellitus complication status: with neurologic complications Diabetes mellitus complication detail: with unspecified neuropathy Qualified Code(s): E11.40 - Type 2 diabetes mellitus with diabetic neuropathy, unspecified (6) Atrial fibrillation Current Visit: No Status: Chronic Assessment and plan: March 14. Restart metoprolol and Cardizem for rate control. Continue aspirin 81 mg daily. Qualifiers: Atrial fibrillation type: paroxysmal Qualified Code(s): I48.0 - Paroxysmal atrial fibrillation (7) Hypothyroidism Current Visit: No Status: Chronic Assessment and plan: March 14. TSH was slightly suppressed at 0.23. Hold Synthroid. Qualifiers: Hypothyroidism type: unspecified Qualified Code(s): E03.9 - Hypothyroidism, unspecified (8) CHF (congestive heart failure) Current Visit: No Status: Acute Assessment and plan: March 14. BN peptide has risen to 1293. She is asymptomatic. Continue Lasix. Restart metoprolol. Qualifiers: Heart failure type: diastolic Heart failure chronicity: acute on chronic Qualified Code(s): I50.33 - Acute on chronic diastolic (congestive) heart failure (9) Dementia Current Visit: No Status: Chronic Assessment and plan: March 14. Repeat MMSE score was 22/. I suspect the previous testing with score of 09/14 was due in part to hearing loss. She is appropriate in conversation but hard of hearing. Qualifiers: Dementia type: unspecified type Dementia behavioral disturbance: without behavioral disturbance Qualified Code(s): F03.90 - Unspecified dementia without behavioral disturbance (10) B12 deficiency Current Visit: No Status: Acute Assessment and plan: March 14. B12 level> 1500. Discontinue supplemental vitamin B12 - Subjective Interval history: March 14. She has no new complaints. March 15. She has no new complaints. - Constitutional Vitals: Temp Pulse Resp BP Pulse Ox 98.7 F 83 16 159/87 95 03/15/19 11:34 03/15/19 11:34 03/15/19 11:34 03/15/19 11:34 03/15/19 11:34 Exam: She is sitting in a chair at bedside resting comfortably. Her affect is cheerful. Lungs are clear. Heart is irregularly irregular. Extremities show no edema. I reviewed her medications and lab results. Internal Medicine: Result - Labs CBC & Chem 7: 03/14/19 07:06 03/14/19 07:06 - ABG Interpretation ABG results: PT/INR, D-dimer PT 10.5 Seconds (9.4-12.1) 03/12/19 23:26 - VTE Reasons for not Prescribing Prophylaxis: Treatment not Indicated - Low risk for VTE Consult Discharge Plan - Plan Referrals: Raleigh Mcleod MD [Primary Care Provider] - 1 week
[2019-03-15] MEDS ORDERED: Ondansetron ODT 4 MG TAB.RAPDIS SL PRN (15:49)
[2019-03-15] MEDS: ALPRAZolam 0.25 MG TABLET PO PRN ×2 (15:54→21:44)
--- NOTE | 2019-03-15 20:54 | Discharge Summary ---
Orders not resulted at time of discharge: Pending orders 03/12/19 23:17 Culture,Urine [RM] Stat 03/12/19 23:33 Culture,Blood [BC] Stat Date of Encounter: 03/15/19 Time of Encounter: 14:10 - Discharge Diagnosis (1) Pneumonia Priority: Primary Status: Acute Qualifiers: Pneumonia type: due to unspecified organism Laterality: unspecified laterality Lung location: unspecified part of lung Qualified Code(s): J18.9 - Pneumonia, unspecified organism (2) Hypotension Priority: Secondary Status: Acute Qualifiers: Hypotension type: hypotension due to hypovolemia Qualified Code(s): I95.89 - Other hypotension; E86.1 - Hypovolemia (3) Dehydration Priority: Secondary Status: Acute (4) Acute renal insufficiency Priority: Secondary Status: Acute (5) DM type 2 (diabetes mellitus, type 2) Priority: Secondary Status: Chronic Qualifiers: Diabetes mellitus custodial insulin use: without trolley wire installer use Diabetes mellitus complication status: with neurologic complications Diabetes mellitus complication detail: with unspecified neuropathy Qualified Code(s): E11.40 - Type 2 diabetes mellitus with diabetic neuropathy, unspecified (6) Atrial fibrillation Priority: Secondary Status: Chronic Qualifiers: Atrial fibrillation type: paroxysmal Qualified Code(s): I48.0 - Paroxysmal atrial fibrillation (7) Hypothyroidism Priority: Secondary Status: Chronic Qualifiers: Hypothyroidism type: unspecified Qualified Code(s): E03.9 - Hypothyroidism, unspecified (8) CHF (congestive heart failure) Priority: Secondary Status: Acute Qualifiers: Heart failure type: diastolic Heart failure chronicity: acute on chronic Qualified Code(s): I50.33 - Acute on chronic diastolic (congestive) heart failure (9) Dementia Priority: Secondary Status: Chronic Qualifiers: Dementia type: unspecified type Dementia behavioral disturbance: without behavioral disturbance Qualified Code(s): F03.90 - Unspecified dementia without behavioral disturbance (10) B12 deficiency Priority: Secondary Status: Acute Hospital course: Ms. Murray is a 78 year old female who was brought to emergency room after daughter reported she had an episode of unresponsiveness while eating supper. The daughter states the patient fell back in her chair, not responding to voice or light touch. EMS was called and was able to arouse her somewhat. Patient was found to have hypotension with initial blood pressure 70/40. She was started on IV fluids. There was acute renal failure present on labs in emergency room. Chest x-ray showed possible pneumonia. She was admitted to [facility] floor for ongoing care needs. Initial orders were written by the emergency room physician. I saw her on light 29 from the history and physical. She was started empirically on IV Rocephin and Zithromax with lactobacillus. She had clinical improvement remained afebrile during her hospital stay. Antibiotics and probiotics will be continued in swing bed. Her graft IV fluids were given antihypertensive medication was held initially. Her blood pressure returned to normal and then natali further to hypertensive range. Metoprolol and Cardizem were restarted. The and creatinine normalized 18 0.7 respectively by March 14. Hemoglobin A1c returned improved but still elevated at 8.4%. Amaryl will be continued. She remained in atrial fibrillation during the time of hospitalization. Rate was controlled with metoprolol and Cardizem. TSH returned slightly suppressed at 0.23. Synthroid will be held. Repeat MMSE was done with a score 22/30. The patient was appropriate in conversation despite being hard of hearing. Social service consult was done. The patient reported there were numerous behaviors by her daughter that resulted in APS intervention. Patient will be placed in swing bed 03/16/[address] for an ex parte hearing on emergency basis. - Time Spent with Patient Total time spent providing and/or coordinating discharge services: - Discharge Medications Prescriptions: New Lactobacillus [Culturelle] 1 each PO BID cap.sprink Enoxaparin [Lovenox] 40 mg SQ 0600 syringe cefTRIAXone [Rocephin] 1,000 mg IVP Q24H vial traZODone [TraZODone] 50 mg PO HS PRN tablet PRN Reason: Sleep ALPRAZolam [Xanax 0.25 MG Tablet] 0.25 mg PO TID PRN tablet PRN Reason: Anxiety Azithromycin [Zithromax] 500 mg IVPB Q24H vial Ondansetron ODT [Zofran ODT] 4 mg SL Q4HR PRN tab.rapdis PRN Reason: Nausea And Vomiting Patient Taking Own Medication 0 each PO BID each Diltiazem CD (24hr) [Cardizem CD] 120 mg PO DAILY cap.er.24h Continued Aspirin 81 mg PO DAILY Furosemide [Lasix] 40 mg PO DAILY #7 tablet Glimepiride [Amaryl] 2 mg PO 0800 #7 tablet Metoprolol Tartrate 100 mg PO BID #14 tablet Gabapentin [Neurontin] 300 mg PO HS Changed Potassium Chloride [Klor-Con 10] 10 meq PO DAILY #0 Discontinued Trazodone HCl 50 - 100 mg PO HS PRN PRN Reason: Sleep Levothyroxine [Synthroid] 75 mcg PO DAILY #7 tablet Methenamine Hippurate [Hiprex] 1 gm PO BID #14 tablet hydrALAZINE [HydrALAZINE] 100 mg PO TID #84 tablet Cyanocobalamin (Vitamin B-12) [Vitamin B12] 1,000 mcg PO DAILY Cardizem 120 mg PO TID Home Medications: Aspirin 81 mg PO DAILY 12/02/18 [History] Furosemide [Lasix] 40 mg PO DAILY #7 tablet 12/09/18 [Rx] Glimepiride [Amaryl] 2 mg PO 0800 #7 tablet 12/09/18 [Rx] Metoprolol Tartrate 100 mg PO BID #14 tablet 12/09/18 [Rx] Gabapentin [Neurontin] 300 mg PO HS 03/12/19 [History] ALPRAZolam [Xanax 0.25 MG Tablet] 0.25 mg PO TID PRN tablet 03/15/19 [Rx] Azithromycin [Zithromax] 500 mg IVPB Q24H vial 03/15/19 [Rx] Diltiazem CD (24hr) [Cardizem CD] 120 mg PO DAILY cap.er.24h 03/15/19 [Rx] Enoxaparin [Lovenox] 40 mg SQ 0600 syringe 03/15/19 [Rx] Lactobacillus [Culturelle] 1 each PO BID cap.sprink 03/15/19 [Rx] Ondansetron ODT [Zofran ODT] 4 mg SL Q4HR PRN tab.rapdis 03/15/19 [Rx] Patient Taking Own Medication 0 each PO BID each 03/15/19 [Rx] Potassium Chloride [Klor-Con 10] 10 meq PO DAILY #0 03/15/19 [Rx] cefTRIAXone [Rocephin] 1,000 mg IVP Q24H vial 03/15/19 [Rx] traZODone [TraZODone] 50 mg PO HS PRN tablet 03/15/19 [Rx] Allergies/Adverse Reactions: Allergy/AdvReac Type Severity Reaction Status Date / Time No Known Allergies Allergy Verified 01/19/18 17:16 Date of admission: 03/13/19 12:31 Primary care physician: Raleigh Mcleod MD Consults: 03/13/19 02:48 Consult to Wedding Consultant [CONS] Routine Reason for SW Consult: Possible need for ECF. - Constitutional Vitals: Temp Pulse Resp BP Pulse Ox 98.7 F 86 16 183/93 97 03/15/19 17:05 03/15/19 17:05 03/15/19 17:05 03/15/19 17:05 03/15/19 17:05 - Patient Status Disposition: Transfer Hospital Swing Bed Condition: Fair - Discharge Instructions - Diet and Activity Diet: diabetic diet - VTE Reasons for not Prescribing Prophylaxis: Treatment not Indicated - Low risk for VTE
[2019-03-15] MEDS: Gabapentin 300 MG CAPSULE PO SCH (21:44)
[2019-03-16 00:53] VITALS: BP 142/87
[2019-03-16 07:45] LABS: BUN/Creatinine Ratio 28 (6-26); Blood Urea Nitrogen 28 mg/dL (8-23); Calcium 8.9 mg/dL (8.6-10.3); Carbon Dioxide 29 mEq/L (23-29); Chloride 106 mEq/L (98-107); Glucose 95 mg/dL (70-105); Osmolality,Calculated 299 (280-300); Potassium 4.1 mEq/L (3.5-5.1); Sodium 142 mEq/L (136-145); eGFR For African Americans > 60 (> 60); eGFR For Non-African Americans 54 (> 60)
== END 2019-03-16 01:42 | disposition other institution (70) | DRG 193 ==
LOC: INPPIK 22:41 → EMEROOPIK 22:41 → INPPIK 03-13 02:13
PROVIDERS: ADMIT Internal Medicine; ATTEND Internal Medicine

== ENCOUNTER 2019-03-16 01:37 | Inpatient (IN) ==
[2019-03-16] MEDS ORDERED: ALPRAZolam 0.25 MG TABLET PO PRN (01:56)
[2019-03-16] MEDS: *HR* Enoxaparin 40 MG/0.4 ML SYRINGE SQ SCH (05:51)
[2019-03-16] MEDS: cefTRIAXone 1,000 MG in Water for inj. (sterile) 10 ML IVPB SCH (08:59)
[2019-03-16] MEDS: Aspirin 81 MG TAB.CHEW PO SCH (09:00)
[2019-03-16] MEDS: Furosemide 40 MG TABLET PO SCH (09:01)
[2019-03-16] MEDS: Diltiazem CD (24hr) 120 MG CAPSULE PO SCH (09:01)
[2019-03-16] MEDS: Lactobacillus 1 EACH CAP.SPRINK PO SCH ×2 (09:01→21:28)
[2019-03-16] MEDS: *HR* Glimepiride 2 MG TABLET PO SCH (09:01)
[2019-03-16] MEDS: Ondansetron ODT 4 MG TAB.RAPDIS SL PRN ×2 (09:43→21:29)
[2019-03-16] MEDS: Azithromycin 500 MG in D5% in Water 250 ML IVPB SCH (11:58)
--- NOTE | 2019-03-16 18:00 | Internal Med Progress Note ---
Date of Encounter: 03/16/19 Time of Encounter: 17:50 - Assessment and plan (1) Pneumonia Current Visit: No Status: Acute Assessment and plan: March 16. Continue Rocephin and Zithromax with lactobacillus. Qualifiers: Pneumonia type: due to unspecified organism Laterality: unspecified laterality Lung location: unspecified part of lung Qualified Code(s): J18.9 - Pneumonia, unspecified organism (2) DM type 2 (diabetes mellitus, type 2) Current Visit: No Status: Chronic Assessment and plan: March 16. Hemoglobin A1c was 8.4% during her acute care stay. Continue Amaryl. Qualifiers: Diabetes mellitus intermodal dispatcher insulin use: without intermodal dispatcher use Diabetes mellitus complication status: with neurologic complications Diabetes mellitus complication detail: with unspecified neuropathy Qualified Code(s): E11.40 - Type 2 diabetes mellitus with diabetic neuropathy, unspecified (3) Atrial fibrillation Current Visit: No Status: Chronic Assessment and plan: March 16. Continue aspirin 81 mg daily. She is considered a fall risk and does not use OAC. Qualifiers: Atrial fibrillation type: paroxysmal Qualified Code(s): I48.0 - Paroxysmal atrial fibrillation (4) Hypothyroidism Current Visit: No Status: Chronic Assessment and plan: March 16. TSH was suppressed at 0.23. Hold Synthroid and continue to monitor. Qualifiers: Hypothyroidism type: unspecified Qualified Code(s): E03.9 - Hypothyroidism, unspecified (5) CHF (congestive heart failure) Current Visit: No Status: Acute Assessment and plan: March 16. Continue Lasix and metoprolol. Qualifiers: Heart failure type: diastolic Heart failure chronicity: acute on chronic Qualified Code(s): I50.33 - Acute on chronic diastolic (congestive) heart failure (6) B12 deficiency Current Visit: No Status: Acute Assessment and plan: March 16. B12 level was> 1500 on 03/14/2019. Hold supplemental B12 and monitor. (7) Dementia Current Visit: No Status: Chronic Assessment and plan: March 16. MMSE score was 22/30 during acute care stay. Continue to monitor. Qualifiers: Dementia type: unspecified type Dementia behavioral disturbance: without behavioral disturbance Qualified Code(s): F03.90 - Unspecified dementia without behavioral disturbance (8) Weakness Current Visit: Yes Status: Acute Assessment and plan: March 16. Continue PT/OT intervention. - Subjective Interval history: March 16. She was discharged to swing bed earlier today after a February 2831 acute-care stay for pneumonia and acute renal insufficiency. She responded well clinically to IV antibiotics and probiotics. Azotemia improved. AF rate was controlled with metoprolol and Cardizem. Synthroid was held for suppressed TSH at 0.23. MMSE showed score 22/30. She appeared at [facility] [address] today for hearing for a straining order against her daughter which was granted. She has no new complaints at this time. - Constitutional Vitals: Temp Pulse Resp BP Pulse Ox 98.2 F 81 16 168/78 91 03/16/19 07:37 03/16/19 07:37 03/16/19 07:37 03/16/19 07:37 03/16/19 07:37 Exam: She is sitting in a chair at bedside and appears in no acute distress. Her affect is bright and cheerful. Heart is irregularly irregular. Lungs are clear. Externally show no edema. I reviewed her medications and lab results. Consult Discharge Plan - Plan Referrals: Raleigh Mcleod MD [Primary Care Provider] - 1 week
[2019-03-16] MEDS ORDERED: traZODone 50 MG TABLET PO SCH (21:00)
[2019-03-16] MEDS ORDERED: Gabapentin 300 MG CAPSULE PO SCH (21:00)
[2019-03-17] MEDS: *HR* Enoxaparin 40 MG/0.4 ML SYRINGE SQ SCH (06:46)
[2019-03-17 07:38] VITALS: BP 119/61
[2019-03-17] MEDS: Ondansetron ODT 4 MG TAB.RAPDIS SL PRN (09:30)
[2019-03-17] MEDS: *HR* Glimepiride 2 MG TABLET PO SCH (09:31)
[2019-03-17] MEDS: Furosemide 40 MG TABLET PO SCH (09:32)
[2019-03-17] MEDS: Aspirin 81 MG TAB.CHEW PO SCH (09:32)
[2019-03-17] MEDS: Diltiazem CD (24hr) 120 MG CAPSULE PO SCH (09:32)
[2019-03-17] MEDS: cefTRIAXone 1,000 MG in Water for inj. (sterile) 10 ML IVPB SCH (09:32)
[2019-03-17] MEDS: Lactobacillus 1 EACH CAP.SPRINK PO SCH (09:32)
[2019-03-17] MEDS ORDERED: Azithromycin 500 MG VIAL ONE (13:57)
[2019-03-17] MEDS: Azithromycin 500 MG in D5% in Water 250 ML IVPB SCH ×2 (14:05→14:06)
--- NOTE | 2019-03-17 15:07 | Discharge Summary ---
Date of Encounter: 03/17/19 Time of Encounter: 14:50 - Discharge Diagnosis (1) Pneumonia Priority: Primary Status: Acute Qualifiers: Pneumonia type: due to unspecified organism Laterality: unspecified laterality Lung location: unspecified part of lung Qualified Code(s): J18.9 - Pneumonia, unspecified organism (2) DM type 2 (diabetes mellitus, type 2) Priority: Secondary Status: Chronic Qualifiers: Diabetes mellitus medical terminologist insulin use: without mcc use Diabetes mellitus complication status: with neurologic complications Diabetes mellitus complication detail: with unspecified neuropathy Qualified Code(s): E11.40 - Type 2 diabetes mellitus with diabetic neuropathy, unspecified (3) Atrial fibrillation Priority: Secondary Status: Chronic Qualifiers: Atrial fibrillation type: paroxysmal Qualified Code(s): I48.0 - Paroxysmal atrial fibrillation (4) Hypothyroidism Priority: Secondary Status: Chronic Qualifiers: Hypothyroidism type: unspecified Qualified Code(s): E03.9 - Hypothyroidism, unspecified (5) CHF (congestive heart failure) Priority: Secondary Status: Chronic Qualifiers: Heart failure type: diastolic Heart failure chronicity: acute on chronic Qualified Code(s): I50.33 - Acute on chronic diastolic (congestive) heart failure (6) B12 deficiency Priority: Secondary Status: Acute (7) Dementia Priority: Secondary Status: Chronic Qualifiers: Dementia type: unspecified type Dementia behavioral disturbance: without behavioral disturbance Qualified Code(s): F03.90 - Unspecified dementia without behavioral disturbance (8) Weakness Priority: Secondary Status: Chronic Hospital course: Ms. Murray is a 78 year old female who was discharged to [facility] earlier today after a February 2831 acute-care stay for pneumonia and acute renal insufficiency. She responded well clinically to IV antibiotics and probiotics. Azotemia improved. AF rate was controlled with metoprolol and Cardizem. Synthroid was held for suppressed TSH at 0.23. MMSE showed score 22/30. She appeared at [facility] [address] March 16 for hearing for a restraining order against her daughter which was granted. Approval was received the afternoon of March 17 for discharge to [facility] for ongoing care needs. Her pneumonia cleared clinically and she will not receive further antibiotics after discharge. Synthroid was held due to suppressed TSH. Labs will be monitored at the [facility]. PT and OT evaluation with ongoing intervention will be done at the [facility]. She will follow with me there. - Time Spent with Patient Total time spent providing and/or coordinating discharge services: - Discharge Medications Prescriptions: Continued Aspirin 81 mg PO DAILY Glimepiride [Amaryl] 2 mg PO 0800 #7 tablet Metoprolol Tartrate 100 mg PO BID #14 tablet Gabapentin [Neurontin] 300 mg PO HS traZODone [TraZODone] 50 mg PO HS PRN tablet PRN Reason: Sleep Ondansetron ODT [Zofran ODT] 4 mg SL Q4HR PRN tab.rapdis PRN Reason: Nausea And Vomiting Patient Taking Own Medication 0 each PO BID each Diltiazem CD (24hr) [Cardizem CD] 120 mg PO DAILY cap.er.24h ALPRAZolam [Xanax 0.25 MG Tablet] 0.25 mg PO TID PRN 30 Days #90 tablet PRN Reason: Anxiety Changed Furosemide [Lasix] 20 mg PO DAILY 365 Days tablet Discontinued Lactobacillus [Culturelle] 1 each PO BID cap.sprink Enoxaparin [Lovenox] 40 mg SQ 0600 syringe cefTRIAXone [Rocephin] 1,000 mg IVP Q24H vial Azithromycin [Zithromax] 500 mg IVPB Q24H vial Potassium Chloride [Klor-Con 10] 10 meq PO DAILY #0 Home Medications: Aspirin 81 mg PO DAILY 12/02/18 [History] Glimepiride [Amaryl] 2 mg PO 0800 #7 tablet 12/09/18 [Rx] Metoprolol Tartrate 100 mg PO BID #14 tablet 12/09/18 [Rx] Gabapentin [Neurontin] 300 mg PO HS 03/12/19 [History] Diltiazem CD (24hr) [Cardizem CD] 120 mg PO DAILY cap.er.24h 03/15/19 [Rx] Ondansetron ODT [Zofran ODT] 4 mg SL Q4HR PRN tab.rapdis 03/15/19 [Rx] Patient Taking Own Medication 0 each PO BID each 03/15/19 [Rx] traZODone [TraZODone] 50 mg PO HS PRN tablet 03/15/19 [Rx] ALPRAZolam [Xanax 0.25 MG Tablet] 0.25 mg PO TID PRN 30 Days #90 tablet 03/17/19 [Rx] Furosemide [Lasix] 20 mg PO DAILY 365 Days tablet 03/17/19 [Rx] Allergies/Adverse Reactions: Allergy/AdvReac Type Severity Reaction Status Date / Time No Known Allergies Allergy Verified 01/19/18 17:16 Date of admission: 03/16/19 01:45 Primary care physician: Raleigh Mcleod MD Consults: 03/16/19 01:59 Consult to Occupational Therapy [CONS] Routine Comment: Evaluate, Plan, and Implement POC Reason for Consult: Evaluate, Plan, and Implement POC Does patient have active BEDREST order?: No Is patient medically & hemodynamically stable?: Yes Patient assessed for mobility or mobilized this visit?: Yes Consult to Physical Therapy [CONS] Routine Comment: Evaluate, Plan, and Implement POC Reason for Consult: Evaluate, Plan, and Implement POC Does patient have active BEDREST order?: No Is patient medically & hemodynamically stable?: Yes Patient assessed for mobility or mobilized this visit?: Yes Consult to Packing And Final Assembly Supervisor [CONS] Routine Reason for SW Consult: Possible ECF placement - Constitutional Vitals: Temp Pulse Resp BP Pulse Ox 97.4 F L 59 16 119/61 96 03/17/19 07:35 03/17/19 07:35 03/17/19 07:35 03/17/19 07:35 03/17/19 07:35 - Patient Status Disposition: Transfer SNF - Discharge Instructions - Diet and Activity Activity: as per physical therapy Diet: diabetic diet
--- NOTE | 2019-03-17 15:13 | Physician Discharge Referral ---
ExtendedCare Referral Info Transfer To: [facility] Provider in Charge: Dov Provider in Charge after Transfer: PCP (Dov) - Diagnosis (1) Pneumonia Priority: Primary Status: Acute (2) DM type 2 (diabetes mellitus, type 2) Priority: Secondary Status: Chronic (3) Atrial fibrillation Priority: Secondary Status: Chronic (4) Hypothyroidism Priority: Secondary Status: Chronic (5) CHF (congestive heart failure) Priority: Secondary Status: Chronic (6) B12 deficiency Priority: Secondary Status: Acute (7) Dementia Priority: Secondary Status: Chronic (8) Weakness Priority: Secondary Status: Chronic Prognosis: Good Aware of Diagnosis: Patient Aware of Prognosis: Patient - Transfer Medications Prescriptions: ALPRAZolam [Xanax 0.25 MG Tablet] 0.25 mg PO TID PRN 30 Days #90 tablet PRN Reason: Anxiety Home Medications: Aspirin 81 mg PO DAILY 12/02/18 [History] Glimepiride [Amaryl] 2 mg PO 0800 #7 tablet 12/09/18 [Rx] Metoprolol Tartrate 100 mg PO BID #14 tablet 12/09/18 [Rx] Gabapentin [Neurontin] 300 mg PO HS 03/12/19 [History] Diltiazem CD (24hr) [Cardizem CD] 120 mg PO DAILY cap.er.24h 03/15/19 [Rx] Ondansetron ODT [Zofran ODT] 4 mg SL Q4HR PRN tab.rapdis 03/15/19 [Rx] Patient Taking Own Medication 0 each PO BID each 03/15/19 [Rx] traZODone [TraZODone] 50 mg PO HS PRN tablet 03/15/19 [Rx] ALPRAZolam [Xanax 0.25 MG Tablet] 0.25 mg PO TID PRN 30 Days #90 tablet 03/17/19 [Rx] Furosemide [Lasix] 20 mg PO DAILY 365 Days tablet 03/17/19 [Rx] Allergies/Adverse Reactions: Allergy/AdvReac Type Severity Reaction Status Date / Time No Known Allergies Allergy Verified 01/19/18 17:16 - Respiratory Orders Smoking Cessation: Smoking cessation has been advised. For more information, call the [place] Tobacco Quit Line at 6-036-KPKV-NOW. - Lab Orders Lab Orders: Other (include drug levels w/frequency) (CBC with differential, BMP, BNP peptide in one week and every 3 months. TSH and B12 level every 3 months.) - Advance Directives Code Status: Full Code - Rehabiliation Orders Rehab Potential: Good Rehab Orders: Evaluation for Physical Therapy, Evaluation for Occupational Therapy - Diet Orders No Concentrated Sweets CERTIFICATION: I certify that the transfer of the above named patient to an Extended Care Facility is necessary for the continuing treatment of the diagnosis listed. The above information is true and accurate reflection of patient's current condition. Confidential - Redisclosure prohibited without a patient's written consent.
== END 2019-03-17 17:04 | DRG 193 ==
LOC: INPPIK 01:45
PROVIDERS: ADMIT Internal Medicine; ATTEND Internal Medicine